=== PATIENT | female | born 1940 | race Caucasian/White ===

== ENCOUNTER 2016-06-24 15:04 | Emergency (ER) | payer MEDICARE, OTHER, BC ==
[2013-10-31 13:12] VITALS: BMI 36.6
[~2016-06-24 15:04] MED LIST: ADVAIR 250/501 DISK INH; ALTOPREV40 MG PO; CELEXA20 MG PO; COUMADIN7.5 MG PO; FLOVENT DI50 MCG/DIS INH; GLUCOPHAGE1000 MG PO; KLOR-CON M2020 MEQ PO; LASIX40 MG PO; LEVAQUIN500 MG PO; MAG-OXIDE400 MG PO; PRILOSEC20 MG PO; STERAPRED DS 1210 MG PO; SYNTHROID200 MC1 PO
[2016-06-24 16:30] LABS: BASOPHILS 0.3 % (0.0-2.0); EOSINOPHILS 0 % (0-7); HEMATOCRIT 39.7 % (36.0-48.0); IMMATURE GRANULOCYTES 0.4 % (0-5); LYMPHOCYTES 7.9 % (15-50); MCH 31.2 pg (26.0-34.0); MCHC 32.7 g/dL (31.0-37.0); MCV 95.2 fL (80.0-100.0); MEAN PLATELET VOLUME 11.4 fL (7.4-10.4); MONOCYTES 9.4 % (2-11); PLATELET COUNT 169 10x3/uL (130-400); RBC 4.17 10x6/uL (4.00-5.40); RDW 13.5 % (11.5-14.5); WBC 9.4 10x3/uL (4.8-10.8)
[2016-06-24 16:41] LABS: INR 1.83 (0.85-1.17); PROTIME 21.1 SECONDS (11.6-15.0)
[2016-06-24 17:15] LABS: ALBUMIN 3.4 g/dL (3.4-5.0); ALKALINE PHOSPHATASE 104 U/L (46-116); ALT (SGPT) 65 U/L (10-68); BILIRUBIN - TOTAL 1.15 mg/dL (0.2-1.3); CALC OSMOLALITY 285 mosm/kg (275-300); CALCIUM 9.9 mg/dL (8.5-10.1); CARBON DIOXIDE 28.2 mmol/L (21.0-32.0); CHLORIDE - SERUM 103 mmol/L (98-107); CREATININE - SERUM 0.7 mg/dL (0.6-1.3); GLUCOSE 149 mg/dL (74-106); POTASSIUM - SERUM 4.1 mmol/L (3.5-5.1); PROTEIN - SERUM 6.1 g/dL (6.4-8.2); SODIUM 141 mmol/L (136-145); UREA NITROGEN 18 mg/dL (7-18); eGFR NON AFRICAN AMERICAN 86 mL/min (90-120)
[2016-06-24 17:32] LABS: CREATINE KINASE 365 UL (21-215); MAGNESIUM - SERUM 1.7 mg/dL (1.8-2.4); PRO BNP 1792 pg/mL (0-450)
[2016-06-24 17:34] LABS: TROPONIN-I < 0.017 ng/mL (0.000-0.060)
[2016-06-24 17:57] LABS: APPEARANCE CLEAR (CLEAR); BILIRUBIN NEGATIVE (NEGATIVE); COLOR YELLOW (YELLOW); GLUCOSE NEGATIVE (NEGATIVE); KETONE SMALL mg/dL (NEGATIVE); LEUKOCYTE ESTERASE NEGATIVE (NEGATIVE); NITRITE NEGATIVE (NEGATIVE); PROTEIN TRACE mg/dL (NEGATIVE); SPECIFIC GRAVITY 1.015 (1.005-1.020); UROBILINOGEN NORMAL (NORMAL)
[2016-06-25] MEDS ORDERED: GLUCOPHAGE500 MG PO (17:38)
[2016-06-25] MEDS ORDERED: COUMADIN6 MG PO (17:46)
[2016-06-25] MEDS ORDERED: COUMADIN7.5 MG PO (17:47)
[2016-06-25] MEDS ORDERED: REQUIP0.5 MG PO (17:50)
== END 2016-06-24 20:15 | disposition home or self-care (01) ==
LOC: D.ER 15:04
PROVIDERS: Nurse Practitioner Family
DX: M25.552 Pain in left hip (principal); M25.512 Pain in left shoulder; I50.9 Heart failure, unspecified; E83.42 Hypomagnesemia; J45.909 Unspecified asthma, uncomplicated; E03.9 Hypothyroidism, unspecified; M54.12 Radiculopathy, cervical region; Z95.1 Presence of aortocoronary bypass graft; J44.9 Chronic obstructive pulmonary disease, unspecified; E11.9 Type 2 diabetes mellitus without complications

== ENCOUNTER 2016-06-25 16:20 | Inpatient (IN) | payer MEDICARE, BC, OTHER ==
[~2016-06-25] VITALS: Ht 157.5 cm; Wt 88.9 kg
[2016-06-25 16:56] VITALS: BP 122/65; BMI 35.9
--- NOTE | 2016-06-25 17:00 | NUR ---
PATIENT TO ROOM AT THIS TIME. ADMITTED AND ASSESSED. NO IV STARTED OF YET. PHYSICIAN AT BEDSIDE. CALL LIGHT WITHIN REACH.
[2016-06-25 17:25] VITALS: BP 122/65
[2016-06-25] MEDS ORDERED: GLUCOPHAGE500 MG PO (17:38)
--- NOTE | 2016-06-25 17:40 | NUR ---
IN TO START PATIENT IV. PATIENT UP IN BED EATING CLEAR LIQUID TRAY. EXPLAINED I WOULD WAIT UNTIL FINISHED EATING. VERBALIZED UNDERSTANDING. FAMILY AT BEDSIDE. CALL LIGHT WITHIN REACH.
[2016-06-25] MEDS ORDERED: COUMADIN6 MG PO (17:46)
[2016-06-25] MEDS ORDERED: COUMADIN7.5 MG PO (17:47)
[2016-06-25] MEDS ORDERED: REQUIP0.5 MG PO (17:50)
--- NOTE | 2016-06-25 18:15 | NUR ---
PATIENT DOWN TO GET CT SCAN.
--- NOTE | 2016-06-25 18:56 | NUR ---
PATIENT SITTING UP IN BED, LAB AT BEDSIDE. FAMILY AT BEDSIDE. CALL LIGHT WITHIN REACH.
[2016-06-25 19:16] LABS: INR 1.59 (0.85-1.17); PROTIME 18.9 SECONDS (11.6-15.0)
[2016-06-25 19:25] LABS: ALBUMIN 3.3 g/dL (3.4-5.0); ANION GAP 12.4 mmol/L (8-16); BILIRUBIN - TOTAL 0.98 mg/dL (0.2-1.3); CALCIUM 10.9 mg/dL (8.5-10.1); CARBON DIOXIDE 31.7 mmol/L (21.0-32.0); CREATININE - SERUM 0.9 mg/dL (0.6-1.3); POTASSIUM - SERUM 4.1 mmol/L (3.5-5.1); PROTEIN - SERUM 6.3 g/dL (6.4-8.2)
[2016-06-25 19:35] LABS: THYROID STIMULATING HORMONE 1.56 uIU/mL (0.36-3.74)
[2016-06-25 20:45] LABS: APPEARANCE CLEAR (CLEAR); BILIRUBIN NEGATIVE (NEGATIVE); COLOR YELLOW (YELLOW); GLUCOSE NEGATIVE (NEGATIVE); KETONE NEGATIVE (NEGATIVE); LEUKOCYTE ESTERASE NEGATIVE (NEGATIVE); NITRITE NEGATIVE (NEGATIVE); PROTEIN NEGATIVE (NEGATIVE); SPECIFIC GRAVITY 1.015 (1.005-1.020); UROBILINOGEN NORMAL (NORMAL)
[2016-06-25 21:25] VITALS: BP 143/76
--- NOTE | 2016-06-25 21:56 | NUR ---
AWAKE,ALERT. VISITING WITH FAMILY. NO COMPLIANTS AT PRESENT. SL TO RIGHT AC INTACT WITHOUT REDNESS OR EDEMA NOTED.CL IN REACH
[2016-06-26] VITALS (12 sets, daily range): BP systolic 108–177; BP diastolic 52–82; Ht 157.5 cm; Wt 88.9 kg
--- NOTE | 2016-06-26 02:15 | NUR ---
RESTING WITH EYES CLOSED, RESP WITH EASE, FALL PRECAUTIONS IN PLACE, CL IN REACH
[2016-06-26 05:29] LABS: BASOPHILS 0.2 % (0.0-2.0); EOSINOPHILS 0 % (0-7); HEMATOCRIT 36.9 % (36.0-48.0); HEMOGLOBIN 11.9 g/dL (12-16); IMMATURE GRANULOCYTES 0.5 % (0-5); LYMPHOCYTES 9.1 % (15-50); MCH 30.7 pg (26.0-34.0); MCHC 32.2 g/dL (31.0-37.0); MCV 95.1 fL (80.0-100.0); MEAN PLATELET VOLUME 11.4 fL (7.4-10.4); MONOCYTES 9.6 % (2-11); NEUTROPHILS 80.6 % (40-80); PLATELET COUNT 186 10x3/uL (130-400); RBC 3.88 10x6/uL (4.00-5.40); RDW 13.6 % (11.5-14.5); WBC 10.7 10x3/uL (4.8-10.8)
--- NOTE | 2016-06-26 05:39 | NUR ---
AWAKE.WITH NO COMPLAINTS. CL IN REACH. DAUGHTER REMAINS AT BEDSIDE.
[2016-06-26 05:53] LABS: APTT 46.6 SECONDS (22.8-39.4); INR 1.66 (0.85-1.17); PROTIME 19.6 SECONDS (11.6-15.0)
[2016-06-26 06:01] LABS: ALBUMIN 2.6 g/dL (3.4-5.0); ALKALINE PHOSPHATASE 117 U/L (46-116); ALT (SGPT) 49 U/L (10-68); CALCIUM 10.8 mg/dL (8.5-10.1); CARBON DIOXIDE 30.5 mmol/L (21.0-32.0); CHLORIDE - SERUM 99 mmol/L (98-107); CREATININE - SERUM 0.7 mg/dL (0.6-1.3); LDH 236 U/L (81-234); MAGNESIUM - SERUM 1.8 mg/dL (1.8-2.4); PHOSPHOROUS 3.5 mg/dL (2.5-4.9); POTASSIUM - SERUM 3.7 mmol/L (3.5-5.1); PROTEIN - SERUM 6.4 g/dL (6.4-8.2); SODIUM 136 mmol/L (136-145); UREA NITROGEN 25 mg/dL (7-18); eGFR NON AFRICAN AMERICAN 86 mL/min (90-120)
[2016-06-26 06:02] LABS: CALC OSMOLALITY 278 mosm/kg (275-300); GLUCOSE 149 mg/dL (74-106)
[2016-06-26 06:16] LABS: C-REACTIVE PROTEIN 7.7 mg/dL (0.0-0.9)
[2016-06-26 06:41] LABS: ERYTHROCYTE SEDIMENTATION RATE 68 mm/hr (0-30)
--- NOTE | 2016-06-26 07:00 | NUR ---
REPORT RECIEVED ASSUMED CARE. PATIENT IN BED WITH IV INTACT. NO COMPLAINTS OR SIGNS OF DISTRESS. PATIENT MORE AWAKE AND ALERT THIS MORNING THAN YESTERDAY EVENING. FAMILY AT BEDSIDE. WAITING TO SEE IF IR IS GOING TO CONTINUE WITH THORACENTESIS OR NOT. BSCDS ON AND WORKING. CALL LIGHT WITHIN REACH.
--- NOTE | 2016-06-26 09:15 | NUR ---
PATIENT TO ROOM WITH NO COMPLAINTS AT THIS TIME. IV INTACT. VS STABLE. FAMILY AT BEDSIDE. CALL LIGHT WITHIN REACH.
[2016-06-26 11:02] LABS: PROTEIN - BODY FLUID 3.9 G/DL
--- NOTE | 2016-06-26 11:37 | NUR ---
Patient Name: JAIME THOMAS Admission Status: Urgent Accout number: [id number] Admission Date: 06-25-2016 : 1940 Admission Diagnosis:CHRONIC OBSTRUCTIVE PULMON DISEASE W ACUTE LOWER RESP I Attending: KIERSTEN Current LOS: 1 Anticipated DC Date: 06-29-2016 Planned Disposition: Home with Home Health Primary Insurance: MEDICARE A & B Discharge Planning Comments: CM MET WITH FAMILY AND PATIENT REGARDING D/C NEEDS AND PLANS. PATIENT LIVES WITH HER SPOUSE (CHARLENE) AND HE WILL DRIVE HER HOME WHEN DISCHARGED. THERE ARE NO STEPS OR STAIRS AT THERE HOME. PATIENT HAS BECOME MORE DEPENDENT IN LAST FEW WEEKS PER DAUGHTER (DEIDRE). PATIENT NEEDS HELP BATHING, DRESSING, MEDICATION MANAGEMENT, AND TRANSFER. PATIENT HAS NOT BEEN FEEDING HERSELF LAST FEW WEEKS AND IS NEEDING HELP. PATIENTS PCP IS DR. VARGAS AND PHARMACY IS [facility]. FAMILY CHOSE [facility] AND [facility]M SIGNED. SNF WAS OUT OF THE QUESTION DAUGHTER STATED. CM WILL CONTINUE TO FOLLOW PATIENT WITH D/C NEEDS AND PLANS. PCP DR. SAM GOME[facility]- [phone] DEIDRE (DAUGHTER) [phone] CHARLENE (SPOUSE) H [phone] C [phone] Technical Support Consultant: Regina Marin How many steps to enter\exit or inside your home? 0 0 * PCP DR. VARGAS 0 * Pharmacy [facility] * Preadmission Environment Home with Family 0 * ADLs Independent 0 * Equipment Bedside Commode Glucometer Nebulizer Oxygen Shower Chair Walker 0 * Other Equipment [employer] O2 0 * List name and contact numbers for known caregivers / representatives who currently or will assist patient after discharge: DEIDRE (DAUGHTER) [phone] CHARLENE (SPOUSE) H [phone], C [phone] 0 * Community resources currently utilized None 0 * Additional services required to return to the preadmission environment? Yes 0 * Can the patient safely return to the preadmission environment? Yes 0 * Has this patient been hospitalized within the prior 30 days at any hospital? No 0 Grand Total: 0
--- NOTE | 2016-06-26 12:10 | NUR ---
PATIENT SITTING UP IN BED EATING CLEAR LIQUIDS AT THIS TIME. NO COMPLAINTS AT THIS TIME. FAMILY AT BEDSIDE. CALL LIGHT WITHIN REACH.
[2016-06-26 13:00] LABS: LYMPH - BF 8 %; MACROPHAGES BF 3 %; NEUT - BF 89 %
--- NOTE | 2016-06-26 14:48 | NUR ---
PATIENT IN BED WITH IV INTACT. NO COMPLAINTS AT THIS TIME. FAMILY AT BEDSIDE. BSCDS ON AND WORKING. CALL LIGHT WITHIN REACH.
--- NOTE | 2016-06-26 17:08 | NUR ---
DRESSING CHANGED PER ORDER AT THIS TIME. PT BED IN LOW POSITION AND CALL LIGHT WITHIN REACH. WILL CONTINUE TO MONITOR.
[2016-06-27 00:59] VITALS: BP 120/51
--- NOTE | 2016-06-27 01:00 | NUR ---
RT AC IV LEAKING. REMOVED AND RESITED 22 G TO RIGHT FOREARM BY LATOYA LIU. RESUMED IV PIGGYBACK. ASSISTED PT UP TO BATHROOM TO VOID. MERON MAT ALARM ON. WILL CONTINUE TO MONITOR.
[2016-06-27 04:00] VITALS: BP 129/62
[2016-06-27 06:12] LABS: BASOPHILS 0.2 % (0.0-2.0); EOSINOPHILS 0.4 % (0-7); HEMATOCRIT 37.5 % (36.0-48.0); HEMOGLOBIN 12.1 g/dL (12-16); IMMATURE GRANULOCYTES 0.8 % (0-5); LYMPHOCYTES 14.8 % (15-50); MCH 30.6 pg (26.0-34.0); MCHC 32.3 g/dL (31.0-37.0); MCV 94.7 fL (80.0-100.0); MEAN PLATELET VOLUME 11.4 fL (7.4-10.4); NEUTROPHILS 70.8 % (40-80); PLATELET COUNT 197 10x3/uL (130-400); RBC 3.96 10x6/uL (4.00-5.40); RDW 13.3 % (11.5-14.5)
[2016-06-27 06:16] LABS: WBC 5.2 10x3/uL (4.8-10.8)
[2016-06-27 06:31] LABS: INR 1.3 (0.85-1.17)
[2016-06-27 06:39] LABS: ALBUMIN 2.4 g/dL (3.4-5.0); ALKALINE PHOSPHATASE 110 U/L (46-116); ALT (SGPT) 37 U/L (10-68); CALC OSMOLALITY 283 mosm/kg (275-300); CALCIUM 10.3 mg/dL (8.5-10.1); CARBON DIOXIDE 31.2 mmol/L (21.0-32.0); CHLORIDE - SERUM 99 mmol/L (98-107); CREATININE - SERUM 0.7 mg/dL (0.6-1.3); GLUCOSE 187 mg/dL (74-106); POTASSIUM - SERUM 3.5 mmol/L (3.5-5.1); PROTEIN - SERUM 6.2 g/dL (6.4-8.2); SODIUM 138 mmol/L (136-145); UREA NITROGEN 20 mg/dL (7-18); eGFR NON AFRICAN AMERICAN 86 mL/min (90-120)
--- NOTE | 2016-06-27 07:30 | NUR ---
RECIEVED PT DURING WALKING ROUNDS. PT RESTING IN BED WITH COMPLAINTS OF PAIN OR A 5 ON A SCALE OF 1-10. PT DOES NOT REQUEST ANYTHING FOR PAIN AT THIS TIME. ASSESSMENT DONE PER FLOWSHEET. BED IN LOW POSITION AND CALL LIGHT WITHIN REACH. WILL CONTINUE TO MONITOR.
[2016-06-27 07:59] VITALS: BP 143/57
--- NOTE | 2016-06-27 08:00 | NUR ---
UP IN ROOM TO BATHROOM.PT WITHOUT DISTRESS.PARTS DATA WRITER AT SIDE.
--- NOTE | 2016-06-27 09:50 | NUR ---
SPOKE WITH PT AND FAMILY ABOUT ADVANCING DIET TOLERATED AND INFORMED THEM THAT WE COULD ADVANCE HER AT LUNCH AND SEE HOW IT IS TOLERATED. PT FREE OF COMPLAINTS, IN CHAIR AT THIS TIME WITH CALL LIGHT IN REACH. FAMILY AT BEDSIDE. WILL CONTINUE TO MONITOR.
--- NOTE | 2016-06-27 12:05 | NUR ---
ASSISTED PT BACK TO BED FROM CHAIR AT THIS TIME. TOLERATED WELL. BED IN LOW POSITION AND CALL LIGHT WITHIN REACH. WILL CONTINUE TO MONITOR.
[2016-06-27 12:08] VITALS: BP 145/90
--- NOTE | 2016-06-27 14:50 | NUR ---
CALLED DR. GARCIA AT THIS TIME TO DISCUSS PT MEDICATION. RECIEVED ORDERS TO GIVE LOVENOX 1MG/KG Q12HR UNTIL AN INR REACHES 2. RECIEVED AN ORDER FOR COUMADIN 10MG X2 DOSES AND THEN RESTART THE PT COUMADIN 6MG DAILY. CALL WAS THEN PLACED TO DR. MIKAELA CAMEJOING PTS UNCONTROLLED A-FIB AND RECIEVED AN ORDER FOR RYTHMOL 300MG BID, HE STATED HE WOULD SEE THE PT AGAIN TOMORROW AND ACT ACCORDINGLY. BED IN LOW POSITION AND CALL ROSIBEL HUERTA. WILL CONTINUE TO LUPE.
[2016-06-27 16:23] VITALS: BP 137/65
[2016-06-27 19:00] VITALS: BP 108/50
[2016-06-27 20:07] LABS: AFB SPECIMEN PROCESSING Concentration (())
--- NOTE | 2016-06-27 21:12 | NUR ---
PATIENT RESTINGI BED. NO SIGNS OF DISTRESS NOTED. RESPIRATIONS EVEN AND UNLABORED. VOICED PATIENT HAS BEEN HALLUCINATING. PATIENT IS CONFUSED TO PLACE AND SITUATION AT THIS TIME. ASSISTED TO BATHROOM WITHOUT DIFFICULTY. SCHEDULED MEDICATIONS GIVEN ORDERED. DENIES ANY NEEDS AT THIS TIME. BED LOW. CALL LIGHT IN REACH .
--- NOTE | 2016-06-27 22:34 | NUR ---
PT IS AWAKE AND 3 FAMILY MEMBERS AT AT THE BEDSIDE GETTING HER COMFORTABLE AND TELLING HER THAT THEY ARE GOING HOME FOR THE NIGHT. PT IS ABLE TO GO TO THE BATHROOM WITH ASSIST AND USES THE CALL LIGHT WELL. THE BED IS LOW, RAILS UP X'S 2 WITH THE CALL LIGHT AT HAND.
[2016-06-28] VITALS: BP 128/59
[2016-06-28 04:00] VITALS: BP 128/61
[2016-06-28 07:15] LABS: BASOPHILS 0.9 % (0.0-2.0); EOSINOPHILS 1.9 % (0-7); HEMATOCRIT 36.9 % (36.0-48.0); IMMATURE GRANULOCYTES 0.6 % (0-5); LYMPHOCYTES 25.3 % (15-50); MCH 30.7 pg (26.0-34.0); MCHC 32.5 g/dL (31.0-37.0); MCV 94.4 fL (80.0-100.0); NEUTROPHILS 56.3 % (40-80); PLATELET COUNT 225 10x3/uL (130-400); RBC 3.91 10x6/uL (4.00-5.40); RDW 13.3 % (11.5-14.5); WBC 4.7 10x3/uL (4.8-10.8)
[2016-06-28 07:38] LABS: INR 1.54 (0.85-1.17); PROTIME 18.5 SECONDS (11.6-15.0)
[2016-06-28 07:44] LABS: ALBUMIN 2.6 g/dL (3.4-5.0); ALKALINE PHOSPHATASE 95 U/L (46-116); ALT (SGPT) 31 U/L (10-68); BILIRUBIN - TOTAL 0.54 mg/dL (0.2-1.3); CALC OSMOLALITY 285 mosm/kg (275-300); CALCIUM 9.5 mg/dL (8.5-10.1); CARBON DIOXIDE 34.2 mmol/L (21.0-32.0); CHLORIDE - SERUM 102 mmol/L (98-107); CREATININE - SERUM 0.7 mg/dL (0.6-1.3); GLUCOSE 177 mg/dL (74-106); POTASSIUM - SERUM 3.4 mmol/L (3.5-5.1); PROTEIN - SERUM 5.9 g/dL (6.4-8.2); SODIUM 140 mmol/L (136-145); UREA NITROGEN 20 mg/dL (7-18); eGFR NON AFRICAN AMERICAN 86 mL/min (90-120)
[2016-06-28 08:04] VITALS: BP 126/68
--- NOTE | 2016-06-28 08:25 | NUR ---
IN BED AT THIS TIME. ALERT AND ORIENTED. CALL LIGHT IN REACH, WILL CONTINUE WITH PLAN OF CARE.
--- NOTE | 2016-06-28 10:50 | NUR ---
SCHEDULED MEDICATIONS ADMINISTERED AT THIS TIME. ASSESSMENT PERFORMED PER FLOWSHEET. CALL LIGHT IN REACH, FAMILY AT BEDSIDE. WILL CONTINUE WITH PLAN OF CARE.
--- NOTE | 2016-06-28 13:00 | NUR ---
UP TO BEDSIDE COMMODE AT THIS TIME AND PT HAD LARGE, SOFT PAUL COLORED STOOL. INCONTINENCE CARE PROVIDED AT THIS TIME. ASSISTED PT BACK TO BED. 20G IV SITED TO RIGHT HAND X3 ATTEMPTS. IV TO RIGHT WRIST LEAKING AROUND INSERTION SITE. D/C WITH CATH TIP INTACT. CALL LIGHT IN REACH, SRX2 WITH BED IN LOWEST POSITION AND WHEELS LOCKED. WILL CONTINUE WITH PLAN OF CARE.
[2016-06-28] MEDS ORDERED: LANTUS SOL100 UNIT/1 SC (16:00)
[2016-06-28] MEDS ORDERED: HUMALOG 30100 UNITS/ SC (16:06)
[2016-06-28 16:14] VITALS: BP 126/63
--- NOTE | 2016-06-28 17:40 | NUR ---
UP IN CHAIR AT THIS TIME. FAMILY AT BEDSIDE. NO CHANGES IN INITIAL ASSESSMENT. CALL LIGHT IN REACH, WILL CONTINUE WITH PLAN OF CARE.
--- NOTE | 2016-06-28 21:22 | NUR ---
PATIENT RESTING IN BED AT THIS TIME. NO SIGNS OF DISTRESS NOTED. RESPIRATIONS EVEN AND UNLABORED. AT BED SIDE. SCHEDULED MEDICATIONS GIVEN. DENIES ANY NEEDS AT THIS TIME. BED LOW. CALL LIGHT IN REACH.
[2016-06-28 22:00] VITALS: BP 124/60
[2016-06-29 02:00] VITALS: BP 118/59
--- NOTE | 2016-06-29 02:19 | NUR ---
EYES CLOSED RESPIRAIONS WITH EASE AND UNLABORED. SR UP X2 CALL LIGHT WITHIN REACH.
[2016-06-29 05:00] VITALS: BP 120/62
[2016-06-29 05:30] LABS: BASOPHILS 0.6 % (0.0-2.0); EOSINOPHILS 4.1 % (0-7); HEMATOCRIT 35.5 % (36.0-48.0); HEMOGLOBIN 11.4 g/dL (12-16); IMMATURE GRANULOCYTES 0.8 % (0-5); LYMPHOCYTES 28.8 % (15-50); MCH 30.4 pg (26.0-34.0); MCHC 32.1 g/dL (31.0-37.0); MCV 94.7 fL (80.0-100.0); MONOCYTES 11.9 % (2-11); NEUTROPHILS 53.8 % (40-80); PLATELET COUNT 234 10x3/uL (130-400); RBC 3.75 10x6/uL (4.00-5.40); RDW 13.2 % (11.5-14.5); WBC 4.9 10x3/uL (4.8-10.8)
[2016-06-29 05:46] LABS: INR 2.02 (0.85-1.17); PROTIME 22.9 SECONDS (11.6-15.0)
[2016-06-29 05:56] LABS: ALBUMIN 2.7 g/dL (3.4-5.0); ALKALINE PHOSPHATASE 84 U/L (46-116); ALT (SGPT) 27 U/L (10-68); CALC OSMOLALITY 283 mosm/kg (275-300); CALCIUM 9.5 mg/dL (8.5-10.1); CARBON DIOXIDE 32.2 mmol/L (21.0-32.0); CHLORIDE - SERUM 101 mmol/L (98-107); CREATININE - SERUM 0.7 mg/dL (0.6-1.3); GLUCOSE 128 mg/dL (74-106); POTASSIUM - SERUM 3.7 mmol/L (3.5-5.1); PROTEIN - SERUM 5.9 g/dL (6.4-8.2); SODIUM 140 mmol/L (136-145); UREA NITROGEN 20 mg/dL (7-18); eGFR NON AFRICAN AMERICAN 86 mL/min (90-120)
[2016-06-29 08:52] VITALS: BP 127/70
[2016-06-29 10:12] LABS: ANA REFLEX - DIRECT Negative (Negative)
[2016-06-29 12:32] VITALS: BP 113/53
--- NOTE | 2016-06-29 12:57 | NUR ---
IV access-22 gauge inserted in left wrist x 1 attempt. Coretta Baird RN
[2016-06-29 13:47] LABS: FUNGUS STAIN Final report (())
[2016-06-29 15:32] VITALS: BP 110/62
[2016-06-29 21:00] VITALS: BP 128/50
--- NOTE | 2016-06-29 21:30 | NUR ---
PATIENT SITTING UP IN CHAIR. NO SIGNS OF DISTRESS NOTED. SCHEDULED MEDS GIVEN. AT BEDSIDE. DENIES ANY NEEDS AT THIS TIME. BED LOW. CALL LIGHT IN REACH.
--- NOTE | 2016-06-30 00:12 | NUR ---
PT IN BED WITH NO DISTRESS. RESPIRATIONS EVEN AND UNLABORED. SIDE RAILS X 2. BED LOW. CALL LIGHT IN REACH.
[2016-06-30 01:00] VITALS: BP 114/48
[2016-06-30 04:54] LABS: BASOPHILS 0.2 % (0.0-2.0); EOSINOPHILS 3.2 % (0-7); HEMATOCRIT 34.9 % (36.0-48.0); HEMOGLOBIN 11.2 g/dL (12-16); IMMATURE GRANULOCYTES 0.6 % (0-5); MCH 30.5 pg (26.0-34.0); MCHC 32.1 g/dL (31.0-37.0); MCV 95.1 fL (80.0-100.0); MEAN PLATELET VOLUME 10.6 fL (7.4-10.4); MONOCYTES 10.6 % (2-11); NEUTROPHILS 63.4 % (40-80); PLATELET COUNT 248 10x3/uL (130-400); RBC 3.67 10x6/uL (4.00-5.40); RDW 13.3 % (11.5-14.5)
[2016-06-30 05:00] VITALS: BP 135/68
[2016-06-30 05:10] LABS: INR 2.56 (0.85-1.17); PROTIME 27.7 SECONDS (11.6-15.0)
[2016-06-30 05:17] LABS: ALBUMIN 2.9 g/dL (3.4-5.0); ALKALINE PHOSPHATASE 84 U/L (46-116); ALT (SGPT) 26 U/L (10-68); BILIRUBIN - TOTAL 0.36 mg/dL (0.2-1.3); CALC OSMOLALITY 280 mosm/kg (275-300); CALCIUM 8.9 mg/dL (8.5-10.1); CARBON DIOXIDE 31.6 mmol/L (21.0-32.0); CHLORIDE - SERUM 100 mmol/L (98-107); CREATININE - SERUM 0.7 mg/dL (0.6-1.3); GLUCOSE 140 mg/dL (74-106); POTASSIUM - SERUM 3.7 mmol/L (3.5-5.1); PROTEIN - SERUM 5.4 g/dL (6.4-8.2); SODIUM 139 mmol/L (136-145); UREA NITROGEN 16 mg/dL (7-18); eGFR NON AFRICAN AMERICAN 86 mL/min (90-120)
--- NOTE | 2016-06-30 07:20 | NUR ---
UP IN CHAIR AT THIS TIME. ALERT AND ORIENTED. OXYGENATION VIA ROOM AIR. ASSESSMENT PERFORMED PER FLOWSHEET. IV TO LEFT WRIST S/L PER ORDER. IV WITH NO S/S OF INFILTRATION PRESENT. CALL LIGHT IN REACH, DENIES NEEDS AT PRESENT TIME. WILL CONTINUE WITH PLAN OF CARE.
[2016-06-30 08:33] VITALS: BP 155/61
--- NOTE | 2016-06-30 09:00 | NUR ---
SCHEDULED MEDICATIONS ADMINISTERED AT THIS TIME. UP IN CHAIR AT THIS TIME. AT BEDSIDE AND CALL LIGHT IN REACH. DENIES NEEDS AT PRESENT TIME. WILL CONTINUE WITH PLAN OF CARE.
--- NOTE | 2016-06-30 12:02 | NUR ---
SCHEDULED MEDICATION ADMINISTERED AT THIS TIME. FSBS 172 AND COVERED WITH 8 UNITS OF HUMALOG VIA SLIDING SCALE.
[2016-06-30 12:08] VITALS: BP 134/62
--- NOTE | 2016-06-30 15:00 | NUR ---
NUTRITION MONITORING & EVAL CHART REVIEWED, PT WALKING WITH PT. TOLERATING ADA DIET. 75% INTAKE RECENT MEALS. WILL CONTINUE TO PROVIDE DIET, MONITOR PT PROGRESS. RD FOLLOWING
[2016-06-30 15:17] VITALS: BP 158/65
--- NOTE | 2016-06-30 16:25 | NUR ---
FSBS 132, SO NO COVERAGE NEEDED PER SLIDING SCALE. CALL LIGHT IN REACH AND AT BEDSIDE. DENIES NEEDS AT THIS TIME. WILL CONTINUE WITH PLAN OF CARE.
--- NOTE | 2016-06-30 18:38 | NUR ---
UP IN CHAIR AT THIS TIME. DENIES NEEDS. CALL LIGHT IN REACH. WILL CONTINUE WITH PLAN OF CARE.
--- NOTE | 2016-06-30 19:30 | NUR ---
ASSESSMENT COMPLETE. S1S2; CLICK. RR DIMINISHED BILATERALLY IN ALL LOBES. AAO. NO SCD IN PLACE; FREQUENT TRIPS TO RESTROOM REQUIRED. PT VERBALIZES UNDERSTANDS LASIX MEDICATION. PERRLA. ON 2L VIA NC. DYSPNEA ON EXERTION. RADIAL AND PEDAL PULSES PALPATED. BRUISING NOTED TO B/L ARMS; PT STATES FROM PIV'S. PIV TO LEFT WRIST; PATENT; SALINE LOCKED. NO NEEDS AT THIS TIME.
--- NOTE | 2016-06-30 19:55 | NUR ---
OT NOTE: PT COMPLETED BUE GROSS/FINE MOTOR SKILLS. PT EXHIBITED DECREASE AROM IN UES. PT COMPLETED DYNAMIC SITTING BALANCE WITH CGA FOR INCREASED I WITH ADLS. THANK YOU, GINO WOODWARD/Kaiden
[2016-06-30 21:00] VITALS: BP 135/60
[2016-07-01 01:00] VITALS: BP 133/52
--- NOTE | 2016-07-01 03:40 | NUR ---
ASSISTED PT TO BATHROOM. STEADY GAIT.
[2016-07-01 05:00] VITALS: BP 122/60
--- NOTE | 2016-07-01 07:15 | NUR ---
PATIENT RECEIVED ALERT IN LOW LOPEZ POSITION. RESPIRATIONS EVEN AND UNLABORED. SIDE RAILS UP X2. BED IN LOW POSITION. CALL LIGHT IN REACH.
[2016-07-01 07:26] LABS: CALC OSMOLALITY 279 mosm/kg (275-300); CALCIUM 9.2 mg/dL (8.5-10.1); CHLORIDE - SERUM 102 mmol/L (98-107); CREATININE - SERUM 0.7 mg/dL (0.6-1.3); GLUCOSE 149 mg/dL (74-106); PHOSPHOROUS 3.5 mg/dL (2.5-4.9); POTASSIUM - SERUM 3.6 mmol/L (3.5-5.1); SODIUM 138 mmol/L (136-145); UREA NITROGEN 15 mg/dL (7-18); eGFR NON AFRICAN AMERICAN 86 mL/min (90-120)
[2016-07-01 07:33] LABS: INR 2.88 (0.85-1.17); PROTIME 30.4 SECONDS (11.6-15.0)
[2016-07-01 07:43] LABS: BASOPHILS 0.6 % (0.0-2.0); EOSINOPHILS 2.9 % (0-7); HEMATOCRIT 36.1 % (36.0-48.0); HEMOGLOBIN 11.5 g/dL (12-16); IMMATURE GRANULOCYTES 0.6 % (0-5); LYMPHOCYTES 17.8 % (15-50); MCH 30.4 pg (26.0-34.0); MCHC 31.9 g/dL (31.0-37.0); MCV 95.5 fL (80.0-100.0); MONOCYTES 8.6 % (2-11); NEUTROPHILS 69.5 % (40-80); PLATELET COUNT 260 10x3/uL (130-400); RBC 3.78 10x6/uL (4.00-5.40); RDW 13.6 % (11.5-14.5); WBC 5.5 10x3/uL (4.8-10.8)
[2016-07-01 08:09] VITALS: BP 132/62
--- NOTE | 2016-07-01 09:00 | NUR ---
PATIENT ALERT IN HIGH LOPEZ POSITION. RESPIRATIONS EVEN AND UNLABORED. IV TO LEFT WRIST SALINE LOCKED. FLUSHES EASY. NO REDNESS OR INFLAMMATION NOTED TO SITE. SCHEDULED MEDICATION ADMINISTERED. DENIES NEEDS. AT BEDSIDE. SIDE RAILS UP X2. BED IN LOW POSITION. CALL LIGHT IN REACH.
--- NOTE | 2016-07-01 11:15 | NUR ---
ACCU CHECK 228. INSULIN PER SLIDING SCALE. SCHEDULED MEDICATION ADMINISTERED. AT BEDSIDE. DENIES NEEDS. SIDE RAILS UP X2. BED IN LOW POSITION. CALL LIGHT IN REACH.
[2016-07-01 11:56] VITALS: BP 97/61
--- NOTE | 2016-07-01 14:39 | NUR ---
SITTING UP IN CHAIR AT BEDSIDE. NO SIGNS OF DISTRESS NOTED. FAMILY AT BEDSIDE. CALL LIGHT IN REACH. DENIES NEEDS.
[2016-07-01 16:20] VITALS: BP 128/61
--- NOTE | 2016-07-01 16:25 | NUR ---
Rehab Prescreening Consult recieved and the chart has been reviewed. According to the PT notes she is ambulating well without device eventhough she is on 4 liters of 02. Rehab will visit with the patient in the AM to determine her functional needs. Nichole Piedra RN Clinical Liaison, Rehab
[2016-07-01 20:14] VITALS: BP 117/65
[2016-07-02 00:04] VITALS: BP 141/62
[2016-07-02 03:59] VITALS: BP 107/65
[2016-07-02 05:51] LABS: BASOPHILS 0.4 % (0.0-2.0); EOSINOPHILS 2.6 % (0-7); HEMATOCRIT 35.6 % (36.0-48.0); HEMOGLOBIN 11.4 g/dL (12-16); IMMATURE GRANULOCYTES 0.4 % (0-5); LYMPHOCYTES 20.1 % (15-50); MCH 30.8 pg (26.0-34.0); MCV 96.2 fL (80.0-100.0); MEAN PLATELET VOLUME 10.7 fL (7.4-10.4); MONOCYTES 9.2 % (2-11); NEUTROPHILS 67.3 % (40-80); PLATELET COUNT 275 10x3/uL (130-400); RDW 13.6 % (11.5-14.5); WBC 5.3 10x3/uL (4.8-10.8)
[2016-07-02 05:58] LABS: INR 3.4 (0.85-1.17); PROTIME 34.7 SECONDS (11.6-15.0)
[2016-07-02 06:14] LABS: ALBUMIN 2.9 g/dL (3.4-5.0); ALKALINE PHOSPHATASE 80 U/L (46-116); ALT (SGPT) 28 U/L (10-68); BILIRUBIN - TOTAL 0.31 mg/dL (0.2-1.3); CALC OSMOLALITY 283 mosm/kg (275-300); CALCIUM 8.7 mg/dL (8.5-10.1); CARBON DIOXIDE 32.1 mmol/L (21.0-32.0); CHLORIDE - SERUM 103 mmol/L (98-107); CREATININE - SERUM 0.6 mg/dL (0.6-1.3); GLUCOSE 127 mg/dL (74-106); POTASSIUM - SERUM 3.9 mmol/L (3.5-5.1); PROTEIN - SERUM 5.3 g/dL (6.4-8.2); SODIUM 141 mmol/L (136-145); UREA NITROGEN 14 mg/dL (7-18); eGFR NON AFRICAN AMERICAN > 90 mL/min (90-120)
--- NOTE | 2016-07-02 07:30 | NUR ---
PATIENT RECEIVED IN LOW LOPEZ POSITION RESTING WITH EYES CLOSED. RESPIRATIONS EVEN AND UNLABORED. SIDE RAILS UP X2. BED IN LOW POSITION. CALL LIGHT IN REACH.
--- NOTE | 2016-07-02 08:30 | NUR ---
PATIENT ALERT IN BED WITH PRESENT. RESPOSITIONED FOR COMFORT. SCHEDULED MEDICATION ADMINISTERED. DENIES NEEDS. SIDE RAILS UP X2. BED IN LOW POSITION. CALL LIGHT IN REACH.
[2016-07-02 08:34] VITALS: BP 140/57
--- NOTE | 2016-07-02 11:05 | NUR ---
Rehab Note- Spoke with patient, patient makes a good IRF patient. Spoke with Cat, charge nurse & CEDRIC Kirby. Thank you for this rteferral! Lennie Chambers RN Clinical Liaison, [facility]
--- NOTE | 2016-07-02 11:27 | NUR ---
PATIENT SITTING UP ON SIDE OF BED ALERT. ACCU CHECK 203. INSULIN PER SLIDING SCALE. DENIES NEEDS. CALL LIGHT IN REACH. BED IN LOW POSITION.
[2016-07-02] MEDS ORDERED: BROVANA15 MCG/2 M INH (11:31)
[2016-07-02] MEDS ORDERED: IPRAT-ALBUT 0.5-3 ML UPD (11:31)
[2016-07-02] MEDS ORDERED: ARICEPT5 MG PO (11:31)
[2016-07-02] MEDS ORDERED: LASIX INJ40 MG/4 ML IV (11:32)
[2016-07-02] MEDS ORDERED: Rythmol PO (11:32)
[2016-07-02] MEDS ORDERED: SINGULAIR10 MG PO (11:33)
[2016-07-02] MEDS ORDERED: FLUTICASONE PRO16 GM NASAL (11:33)
[2016-07-02] MEDS ORDERED: TESSALON PERLE100 MG PO (11:33)
[2016-07-02] MEDS ORDERED: PULMICORT0.5 MG/21 UPD (11:33)
[2016-07-02] MEDS ORDERED: MUCINEX DM ER1 EAC1 PO (11:33)
[2016-07-02] MEDS ORDERED: MIRALAX17 GM PO (11:34)
[2016-07-02] MEDS ORDERED: COLACE100 MG PO (11:34)
[2016-07-02] MEDS ORDERED: MILK OF MAGNESI30 ML PO (11:34)
[2016-07-02] MEDS ORDERED: PROTONIX40 MG PO (11:34)
[2016-07-02] MEDS ORDERED: FLORAJEN3 CAPS460 MG PO (11:34)
[2016-07-02] MEDS ORDERED: HUMALOG 30100 UNITS/ SC (11:35)
[2016-07-02] MEDS ORDERED: SYNTHROID150 MCG PO (11:35)
[2016-07-02] MEDS ORDERED: MAXIPIME 1 GM/D51 G1 IV (11:38)
--- NOTE | 2016-07-02 11:50 | NUR ---
07/02/2016 11:47 DCP: Discharge Planning Rehab prescreen ordered 07/01 - met with patient, she was agreeable to transfer if accepted. Screen completed this morning - patient has been accepted and will transfer later this afternoon. She wants to use [facility] when discharged from rehab. CM will follow.
[2016-07-02 12:21] VITALS: BP 132/78
--- NOTE | 2016-07-02 14:00 | NUR ---
UP AMBULATING IN HALLWAY WITH PT. NO SIGNS OF DISTRESS NOTED. WILL CONTINUE TO MONITOR.
--- NOTE | 2016-07-02 16:14 | NUR ---
ALERT IN BED VISITING WITH GUESTS. DENIES NEEDS. SIDE RAILS UP X2. BED IN LOW POSITION. CALL LIGHT IN REACH.
--- NOTE | 2016-07-02 17:38 | NUR ---
REPORT CALLED TO REHAB. LATOYA BAUER RECEIVED REPORT
--- NOTE | 2016-07-02 18:10 | NUR ---
PATIENT D/C TO [facility] REHAB ROOM [id number]. TRANSFERRED DOWNSTAIRS VIA WHEELCHAIR WITH AND STAFF
--- NOTE | 2016-07-03 08:46 | EC ---
PATIENT:JAIME THOMAS DATE OF SERVICE: 06/25/16 SEX: F MEDICAL RECORD: [id number] DATE OF : [birth year] LOCATION:[facility] AGE OF PATIENT: 76 ADMISSION DATE: 06/25/16 REFERRING PHYSICIAN: INTERPRETING PHYSICIAN: ROSA AL MD ECHOCARDIOGRAM REPORT ECHO CHARGES 4 ECHO COMPLETE CLINICAL DIAGNOSIS: CHF/AFIB/ HX OF [facility]) ECHOCARDIOGRAPHIC MEASUREMENTS (adult normal given) AC root (d.<3.7cm) 3.5 LV Septum d (<1.2 cm> 1.8 Valve Excursion 1.1 LV Septum (systole) 2.1 Left Atria (s.<4.0cm> 4.6 LVPW d(<1.2cm) 2.0 RV (d.<2.3cm) 3.6 LVPW (sytole) 2.1 LV diastole(<5.6CM) 4.4 MV E-F(>70mm/sec) LV systole 3.4 LVOT Diameter 1.0 MV exc.(>10mm) Est.ejection fraction (50-75%) Pericardial Effusion N DOPPLER: LVIT A 52.0 E 138 LA RVSP 36 LVOT 137 AOP1/2T Asc. Ao 166 RVOT 145 RA PA 160 AV Gradient Peak 11.07 AV Mean 5.07 AV Area 0.7 MV Gradient Peak 9.67 MV Mean 4.0 MV Area COMMENTS: Wood Treating Inspector: Génesis JUARES Survey Research Manager:2 Dr. De Anda TAPE# PACS DATE OF SERVICE: 06/26/2016 Echocardiogram FINDINGS: 1. Left ventricle chamber size is within normal limits. Left ventricular systolic function is normal. Overall ejection fraction estimated at 55%. 2. Left atrium is mildly dilated at 4.6 cm. Right atrium and right ventricle chamber sizes are within normal limits. 3. Valvular structures: Mitral valve was placed with a mechanical prosthesis ECHOCARDIOGRAM REPORT [id number] JAIME THOMAS with normal structure and function in this position. The remaining valvular structures have normal structure and motion. 4. Doppler interrogation only reveals mild tricuspid regurgitation. No other valvular insufficiency or stenosis. 5. No evidence of pericardial effusion or left ventricular thrombus. TRANSINT:[id number] Voice Confirmation ID: [id number] DOCUMENT ID: [id number] ROSA AL MD at 0846 CC: [id number] DICTATION DATE: 06/26/16 1240 STAINING MACHINE OPERATOR: 06/26/16 1338 DIS IN 07/02/16 [address] [place] [address]
--- NOTE | 2016-07-03 08:46 | CN ---
PATIENT NAME:JAIME CORTEZ MEDICAL RECORD: [id number] : 38 LOCATION:[facility] ADMIT DATE: 06/25/16 ACCOUNT: [id number] CONSULTING PHYSICIAN: ROSA AL MD REFERRING PHYSICIAN: CRISELDA VARGAS MD DATE OF CONSULTATION: 06/26/2016 Cardiology Consultation ADMITTING DIAGNOSES: 1. Pleural effusion, status post thoracentesis. 2. Possible pneumonia. 3. Status post mitral valve replacement. 4. Coumadin anticoagulation for prosthetic mitral valve. 5. History of atrial fibrillation. 6. Hyperlipidemia. HISTORY OF PRESENT ILLNESS: Mrs. Cortez is well known to us, status post mitral valve replacement. She has a past history of atrial fibrillation; however, no recent atrial fibrillation. She is admitted for thoracentesis and antibiotic therapy. The EKGs are copies in the chart, but they appear to be sinus rhythm with PACs. She has not complained of any palpitations. Her heart rate is largely been in the 60-70 range. She is on no antiarrhythmic medications at this time. She was on Coumadin for her heart valve. Her last INR was 1.59. PHYSICAL EXAMINATION: GENERAL APPEARANCE: Well-nourished, well-developed, appears stated age. Level of distress, comfortable. PSYCHIATRIC: Mental status, alert, normal affect. Orientation, oriented to time, place and person. EYES: Lids and conjunctiva, noninjected. No discharge, no pallor. ENT: Lips, teeth, gums, normal dentition. Oropharynx, no cyanosis, no pallor. NECK: Carotid arteries, bilateral normal upstroke, no bruits, no thrills. JUGULAR VEINS: No jugular venous pressure or distention. CERVICAL LYMPH NODES: Nontender, nonenlarged. THYROID: Not enlarged. Nontender. No nodules. LUNGS: Respiratory effort, unlabored. CHEST: Normal curvature. No thoracic deformity. No chest wall tenderness. Percussion, resonant. Auscultation, clear. No wheezes, no rales, no rhonchi. CARDIOVASCULAR: Heart is regular. Good valve sounds, compatible with prosthetic aortic valve. EXTREMITIES: No cyanosis, no edema. Peripheral pulses, full and equal in all extremities, except as noted. No bruits appreciated. ABDOMEN: Soft, nondistended. Normal aorta. No bruit. Nontender. No masses. Liver, nontender, no hepatomegaly. Spleen, nontender, no splenomegaly. MUSCULOSKELETAL: No joint tenderness. No joint swelling. No erythema. NEUROLOGICAL: Normal gait, normal strength, normal tone. SKIN: Warm and dry. OVERALL IMPRESSION: 1. Status post mitral valve replacement, on Coumadin therapy. She remains on her 6 mg a day. This is stable. 2. Atrial fibrillation. At this time, she appears to be in sinus rhythm. EKG is compatible sinus rhythm. She has not had any atrial fibrillation for quite CONSULT REPORT [id number] JAIME CORTEZ some time. At this time, she does not need an antiarrhythmic. If she does go into atrial fibrillation, would place her on Rythmol. TRANSINT:[id number] Voice Confirmation ID: [id number] DOCUMENT ID: [id number] ROSA AL MD at 0846 CC: [id number] DICTATION DATE: 06/26/16 1614 RESTAURANT SERVICE MANAGER: 06/26/16 2217 DIS IN 07/02/16 [address] [place] [address]
[2016-07-29 11:19] LABS: FUNGUS MYCOLOGY CULTURE Final report (())
[2016-08-14 11:18] LABS: ACID FAST CULTURE Negative (()); ACID FAST SMEAR Negative (())
== END 2016-07-02 18:28 | DRG 190 ==
LOC: D.MS 16:20
PROVIDERS: Family Medicine; Internal Medicine Pulmonary Disease; Radiology Diagnostic Radiology; ADMIT Family Medicine
PROC: 0W993ZZ Drainage of Right Pleural Cavity, Percutaneous Approach (ICD-10-PCS; principal; 2016-06-26 08:11)
DX: J44.0 Chronic obstructive pulmonary disease with (acute) lower respiratory infection (principal); J15.6 Pneumonia due to other Gram-negative bacteria; J15.4 Pneumonia due to other streptococci; I13.0 Hypertensive heart and chronic kidney disease with heart failure and stage 1 through stage 4 chronic kidney disease, or unspecified chronic kidney disease; J90 Pleural effusion, not elsewhere classified; F05 Delirium due to known physiological condition; J45.909 Unspecified asthma, uncomplicated; E11.22 Type 2 diabetes mellitus with diabetic chronic kidney disease; N18.9 Chronic kidney disease, unspecified; E03.9 Hypothyroidism, unspecified; I05.9 Rheumatic mitral valve disease, unspecified; G25.81 Restless legs syndrome; M47.816 Spondylosis without myelopathy or radiculopathy, lumbar region; M48.06 Spinal stenosis, lumbar region

== ENCOUNTER 2016-07-02 18:19 | Inpatient (IN) | payer MEDICARE, BC, OTHER ==
[~2016-07-02] VITALS: Ht 157.5 cm; Wt 89.1 kg
[~2016-07-02 18:19] MED LIST changes: +ARICEPT5 MG PO; +BROVANA15 MCG/2 M INH; +COLACE100 MG PO; +COUMADIN6 MG PO; +FLORAJEN3 CAPS460 MG PO; +FLUTICASONE PRO16 GM NASAL; +GLUCOPHAGE500 MG PO; +HUMALOG 30100 UNITS/ SC; +IPRAT-ALBUT 0.5-3 ML UPD; +LANTUS SOL100 UNIT/1 SC; +LASIX INJ40 MG/4 ML IV; +MAXIPIME 1 GM/D51 G1 IV; +MILK OF MAGNESI30 ML PO; +MIRALAX17 GM PO; +MUCINEX DM ER1 EAC1 PO; +PROTONIX40 MG PO; +PULMICORT0.5 MG/21 UPD; +REQUIP0.5 MG PO; +Rythmol PO; +SINGULAIR10 MG PO; +SYNTHROID150 MCG PO; +TESSALON PERLE100 MG PO
--- NOTE | 2016-07-02 19:15 | NUR ---
REC'D PT FROM DAYSHIFT. PT IS A&OX3. PT HAS FAMILY AT BEDSIDE AND DENIES NEEDS AT THIS TIME. BED LOW. CL IN REACH.
[2016-07-02 19:27] VITALS: BP 118/54; Ht 157.5 cm; Wt 89.1 kg
--- NOTE | 2016-07-03 01:15 | NUR ---
PT RESTING, EYES CLOSED. BED LOW. CL IN [facility].
[2016-07-03 07:25] LABS: BASOPHILS 0.5 % (0.0-2.0); EOSINOPHILS 2.3 % (0-7); HEMATOCRIT 34.9 % (36.0-48.0); HEMOGLOBIN 11.1 g/dL (12-16); IMMATURE GRANULOCYTES 0.5 % (0-5); MCH 30.6 pg (26.0-34.0); MCHC 31.8 g/dL (31.0-37.0); MCV 96.1 fL (80.0-100.0); MEAN PLATELET VOLUME 10.7 fL (7.4-10.4); MONOCYTES 9.6 % (2-11); NEUTROPHILS 66.1 % (40-80); PLATELET COUNT 274 10x3/uL (130-400); RBC 3.63 10x6/uL (4.00-5.40); RDW 13.6 % (11.5-14.5); WBC 4.4 10x3/uL (4.8-10.8)
[2016-07-03 07:43] LABS: INR 3.57 (0.85-1.17); PROTIME 36.1 SECONDS (11.6-15.0)
[2016-07-03 07:45] LABS: CALC OSMOLALITY 281 mosm/kg (275-300); CALCIUM 8.9 mg/dL (8.5-10.1); CARBON DIOXIDE 32.1 mmol/L (21.0-32.0); CHLORIDE - SERUM 104 mmol/L (98-107); CREATININE - SERUM 0.6 mg/dL (0.6-1.3); GLUCOSE 139 mg/dL (74-106); POTASSIUM - SERUM 4.1 mmol/L (3.5-5.1); SODIUM 140 mmol/L (136-145); UREA NITROGEN 16 mg/dL (7-18); eGFR NON AFRICAN AMERICAN > 90 mL/min (90-120)
[2016-07-03 08:23] VITALS: BP 137/59
--- NOTE | 2016-07-03 09:31 | NUR ---
SITTING ON SIDE OF THE BED EATING BREAKFAST. CALLIGHT IN REACH.
--- NOTE | 2016-07-03 11:25 | NUR ---
BS 121, NO INSULIN NEEDED. NO NEEDS VOICED.
--- NOTE | 2016-07-03 13:36 | NUR ---
SITTING IN WHEELCHAIR IN THE ROOM WITH AT THE BEDSIDE.
--- NOTE | 2016-07-03 15:24 | NUR ---
SITTING IN WHEELCHAIR IN ROOM TALKING TO ROOMATE.
--- NOTE | 2016-07-03 17:03 | NUR ---
ASSISTED TO BR, NO FALLS NOTED.
--- NOTE | 2016-07-03 19:20 | NUR ---
PT IN BED VISITING WITH . NO COMPLAINTS NOTED AT THIS TIME. CALL LIGHT IN REACH
[2016-07-03 20:46] VITALS: BP 127/68
--- NOTE | 2016-07-04 00:37 | NUR ---
PT IN BED WITH EYES CLOSED AND CHEST RISING. RESPIRATIONS EVEN AND UNLABORED. NO SIGN/SYMPTOM OF DISTRESS NOTED AT THIS TIME. CALL LIGHT IN REACH.
[2016-07-04 07:00] VITALS: BP 132/55
--- NOTE | 2016-07-04 07:21 | NUR ---
PT IN BED WITH EYES CLOSED AND CHEST RISING. RESPIRATIONS EVEN AND UNLABORED. NO CONCERN NOTED AT THIS TIME. CALL LIGHT IN REACH.
[2016-07-04 07:34] LABS: INR 3.02 (0.85-1.17); PROTIME 31.5 SECONDS (11.6-15.0)
--- NOTE | 2016-07-04 08:00 | NUR ---
PT OBSERVED LYING IN BED WATCHING TV. RESPIRATIONS EVEN AND UNLABORED. PT. DENIES ANY CONCERNS AT THIS TIME. CALL LIGHT AND PERSONAL ITMENS WITHIN REACH. BED IN LOWEST POSITION.
--- NOTE | 2016-07-04 12:00 | NUR ---
PT OBSERVED SITTING IN WHEELCHAIR EAT LUNCH WITH . CALL LIGHT AND PERSONAL ITEMS WITHIN REACH.
[2016-07-04 19:19] VITALS: BP 128/54
[2016-07-04 19:22] VITALS: BP 107/79
--- NOTE | 2016-07-04 19:50 | NUR ---
assisted patient to bathroom, tolerated ambulation without oxygen, pt incontinent of min amount of urine, brief changed, pt states she has urgency. pt walks with min sba, pt has wide slow gait. pt has difficulty with bed mobility.
--- NOTE | 2016-07-05 00:44 | NUR ---
pt resting quietly, eyes closed, respirations regular with occasional snoring sound. no ss/ of acute distress.
--- NOTE | 2016-07-05 02:42 | NUR ---
pt resting quietly, no s/s of acute distress, respirations regular and unlabored.
--- NOTE | 2016-07-05 06:52 | NUR ---
pt resting quietly, denies needs.
[2016-07-05 06:58] LABS: INR 2.22 (0.85-1.17); PROTIME 24.7 SECONDS (11.6-15.0)
[2016-07-05 08:00] VITALS: BP 137/60
--- NOTE | 2016-07-05 08:00 | NUR ---
ASSISTED PT TO WHEELCHAIR TO EAT BREAKFAST. PT DENIES ANY COMPLAINTS AT THIS TIME. CALL LIGHT WITHIN REACH.
--- NOTE | 2016-07-05 12:00 | NUR ---
PT OBSERVED SITTING IN HER WHEELCHAIR EATING LUNCH WITH HER AND DAUGHTER. PT DENIES COMPLAINTS AT THIS TIME. CALL LIGHT WITHIN REACH.
--- NOTE | 2016-07-05 15:44 | NUR ---
PT RESTING QUIETLY IN BED WITH EYES CLOSE. CALL LIGHT AND PERSONAL ITEMS WITHIN REACH. BED IN LOWEST POSITION WITH SIDE RAILS UP TIMES TWO.
--- NOTE | 2016-07-05 17:45 | NUR ---
PATIENT IN BED EATING DINNER. HOB 30 DEGREES. BED IN LOWEST POSITION, CALL LIGHT IN REACH. BED RAILS UP X'S 2. NO SIGNS OF DISTRESS NOTED. PATIENT DENIES NEEDS.
[2016-07-05 19:40] VITALS: BP 125/68
--- NOTE | 2016-07-05 20:00 | NUR ---
PT IS RESTING IN BED WITH EYES OPEN. ALERT AND ORIENTED X 3. DENIES PAIN OR DISCOMFORT AT THIS TIME. VSS. O2 IS ON @ 2LPM PER NC. SPOUSE IS AT BEDSIDE. SR'S ARE UP X 2 IN BED. CALL LIGHT AND BEDSIDE TABLE ARE WITHIN EASY REACH.
--- NOTE | 2016-07-05 22:22 | NUR ---
PT IS RESTING QUIETLY IN BED WITH EYES CLOSED. RESPS ARE EVEN AND UNLABORED. NO ACUTE DISTRESS NOTED.
--- NOTE | 2016-07-05 23:40 | NUR ---
RESTING QUIETLY IN BED, HOB UP 20 DEGREES. APPEARS COMFORTABLE.
--- NOTE | 2016-07-06 02:03 | NUR ---
PT IS RESTING QUIETLY IN BED WITH EYES CLOSED. RESPS ARE EVEN AND UNLABORED. NO ACUTE DISTRESS NOTED.
--- NOTE | 2016-07-06 04:56 | NUR ---
PT RESTING IN BED WITH EYES CLOSED.
[2016-07-06 06:18] LABS: BASOPHILS 0.4 % (0.0-2.0); EOSINOPHILS 1.6 % (0-7); HEMATOCRIT 38.6 % (36.0-48.0); HEMOGLOBIN 12.3 g/dL (12-16); IMMATURE GRANULOCYTES 0.2 % (0-5); LYMPHOCYTES 20.4 % (15-50); MCHC 31.9 g/dL (31.0-37.0); MCV 97.2 fL (80.0-100.0); MEAN PLATELET VOLUME 10.9 fL (7.4-10.4); MONOCYTES 6.7 % (2-11); NEUTROPHILS 70.7 % (40-80); PLATELET COUNT 307 10x3/uL (130-400); RBC 3.97 10x6/uL (4.00-5.40); RDW 14.2 % (11.5-14.5); WBC 5.6 10x3/uL (4.8-10.8)
[2016-07-06 06:49] LABS: CALC OSMOLALITY 285 mosm/kg (275-300); CALCIUM 9.3 mg/dL (8.5-10.1); CARBON DIOXIDE 28.7 mmol/L (21.0-32.0); CHLORIDE - SERUM 104 mmol/L (98-107); CREATININE - SERUM 0.6 mg/dL (0.6-1.3); GLUCOSE 136 mg/dL (74-106); POTASSIUM - SERUM 4.5 mmol/L (3.5-5.1); SODIUM 142 mmol/L (136-145); UREA NITROGEN 15 mg/dL (7-18); eGFR NON AFRICAN AMERICAN > 90 mL/min (90-120)
[2016-07-06 07:14] LABS: INR 2.26 (0.85-1.17); PROTIME 25.1 SECONDS (11.6-15.0)
--- NOTE | 2016-07-06 07:22 | NUR ---
RESTING QUIETLY IN BED CALL LIGHT IN REACH
--- NOTE | 2016-07-06 07:26 | RHP ---
PATIENT: JAIME THOMAS MEDICAL RECORD: [id number] ACCOUNT: [id number] LOCATION:[facility] : 39 ADMISSION DATE: 07/02/16 REHABILITATION HISTORY AND PHYSICAL EXAMINATION POST ADMISSION PHYSICIAN EXAMINATION Post-Admission Physical Examination and History and Physical DATE OF ADMISSION: 07/02/2016 ADMITTING DIAGNOSES: Right lower lobe community-acquired pneumonia, probably related to Gram-negative rods and also Streptococcus pneumoniae and also right moderate pleural effusion, peripneumonic effusion suspected and chronic obstructive pulmonary disease/asthma overlap syndrome. HISTORY OF PRESENT ILLNESS: The patient admitted to the inpatient rehab with a right lower lobe community-acquired pneumonia, probably Gram-negative rods and strep pneumoniae. She also has a moderate pleural effusion on peripneumonic effusion suspected, COPD, asthma overlap syndrome. She is 76 years old. She got moderate COPD and she is on O2 at bedtime. She has also got a mitral valve replacement. She is on Coumadin. She got chronic kidney disease, CHF. She was admitted to [facility] for shortness of breath, pneumonia, pleural effusion on June 25. She has chronic back pain. MRI shows degenerative joint disease and spinal stenosis. She came in to the hospital with complaints of increasing shortness of breath over the last couple of months particularly with a few days prior to admission with occasional wheezing. She had been taking her nebulizer, which helped, but did not resolve her symptoms. She has chronic leg edema. She has dyspnea with activity, increase nocturnal symptoms. She uses oxygen daily at bedtime, but was having to use it some during the daytime. She has also had a mild cough productive of yellow sputum, but no hemoptysis. She also has chronic pain in her shoulders. She was in the ED and discharged home, came back with increasing symptoms after being seen at a walk-in clinic, chest x-ray showed a pleural effusion on admit to the [facility]. She had a CT-guided thoracentesis with 350 cc removed at that time. She is definitely in need inpatient rehab to get back to her prior level of functioning and return home. COMORBIDITIES: Include a moderate pleural effusion, right lower lobe pneumonia, chronic obstructive pulmonary disease, emphysema, asthma, status post mitral valve replacement, history of atrial fibrillation, hypothyroidism, hypertension, spinal stenosis, and restless leg syndrome. PAST MEDICAL HISTORY: Significant for COPD, asthma, chronic kidney disease, CHF, got a history of mitral valve replacement, hypertension and hypothyroidism. PAST SURGICAL HISTORY: Includes gallbladder surgery, cataract surgery, appendectomy and hysterectomy. ALLERGIES: ANY TYPE OF BENADRYL OR DIPHENHYDRAMINE, CODEINE, PENICILLIN, RAMIPRIL AND ZITHROMAX. CURRENT MEDICATIONS: She is on Coumadin, she takes 7.5 mg and alternates this with 6 on Wednesday, she is on potassium liquid 20 mEq daily, Protonix 40 mg daily. She is on Synthroid 150 mcg daily. She is on furosemide 40 mg IV daily. She is on Flonase nasal spray, Brovana 15 mcg b.i.d., Tylenol p.r.n. pain, Maxipime HISTORY AND PHYSICAL [id number] ALLSHOUSE,JAIME B 1 gram q.8 hours IV. She is on Rythmol 300 mg b.i.d., Requip 0.5 mg q.h.s., polyethylene glycol 17 grams in 8 ounces of water b.i.d. as needed for constipation, Singulair 10 mg q.h.s., Milk of Magnesia p.r.n., DuoNeb as needed, Mucinex DM b.i.d. She is on a low resistant Humalog sliding scale, Aricept 5 mg q.h.s., Colace 100 mg b.i.d. and Tessalon Perles as needed for cough. HABITS: No alcohol or tobacco use. FAMILY HISTORY: Noncontributory. SOCIAL HISTORY: The patient wants to return home with her spouse. REVIEW OF SYSTEMS: GENERAL: She only does complain of weakness. HEENT: Does complain of cold, cough, or congestion. CARDIOVASCULAR: Denies any chest pain. LUNGS: Does complain of shortness of breath. PHYSICAL EXAMINATION: VITAL SIGNS: Stable, afebrile. GENERAL: Somewhat obese female, in no acute distress, alert upon exam. HEENT: Normocephalic, atraumatic. Mucosa moist. NECK: Supple. No lymphadenopathy. LUNGS: Coarse breath sounds bilaterally. CARDIOVASCULAR: ____ rate and rhythm. ABDOMEN: Benign. EXTREMITIES: Does have peripheral edema. NEUROLOGIC: Intact. LABORATORY DATA: White count is 4.4, H&H of 11 and 35, and platelet count was 274. Her INR is 3.57. Sodium 140, potassium 4.1, BUN and creatinine of 16 and 0.6 and blood sugar is noted to be 139. ASSESSMENT: This is a 76-year-old female patient admitted to rehab with a working diagnosis of right lower lobe community-acquired pneumonia, with peripneumonic effusion status post thoracentesis. The patient has potential to make improvement. We instituted the following multidisciplinary therapies including to, but not limited to physical, occupational, respiratory, speech, nutritional services, prosthetics and orthotics. Given her complex condition and risk for more complications, rehabilitation services cannot be provided at a lower level of care such as a custodial facility. PLAN: 1. Admit to [facility] rehab for intensive inpatient therapy to include the following disciplines: A. Physical therapy to improve gait, all transfer skills and bed mobility to a modified independent level. B. Occupational therapy to improve activities of daily living to a modified independent level. C. Case management to assist with discharge planning and placement options. D. Nutrition to assist with nutritional needs. E. Rehabilitation nursing to assist in monitoring the patient's underlying medical conditions and to assist with any type of bowel or bladder management. 2. The patient's current medication and medical care will be continued. 3. The patient will be placed on standard fall precautions. HISTORY AND PHYSICAL [id number] JAIME THOMAS 4. We will monitor her INR closely. She is a little bit ____ at this time. We will go ahead and hold it until Wednesday night and restart it. 5. We will go ahead and discuss this patient during care team staff meeting this week. 6. We will go ahead and continue on IV antibiotics and treatment if necessary. TRANSINT:[id number] Voice Confirmation ID: [id number] DOCUMENT ID: [id number] CATHY BOWSER MD at 0726 CC: [id number] DICTATION DATE: 07/03/16 0838 RESTAURANT ATTENDANT: 07/03/16 1103 ADM IN [place] [id number] [place] [address]
[2016-07-06 08:00] VITALS: BP 144/61
--- NOTE | 2016-07-06 08:00 | NUR ---
PATIENT DRESSED AND SITTING UP IN WHEELCHAIR BY BED FOR BREAKFAST. IN ROOM VISITING BEFORE THERAPY
--- NOTE | 2016-07-06 10:00 | NUR ---
PATIENT HAS URGENANCY TO URINATE DUE TO LASIX 40MG. INCONT. OF URINE. WEARING BRIEF.
--- NOTE | 2016-07-06 11:30 | NUR ---
GLUCOSE LEVEL 140. NO SLIDING SCALE INSULIN GIVEN
--- NOTE | 2016-07-06 13:55 | NUR ---
PATIENT IN REHAB ROOM. WORKING WITH PHYSICAL THERAPIST. DENIES ANY PAIN/DISC AT THIS TIME
--- NOTE | 2016-07-06 17:30 | NUR ---
GLUCOSE LEVEL 164. EIGHT UNITS OF SLIDING SCALE INSULIN GIVEN
[2016-07-06 19:00] VITALS: BP 126/67
--- NOTE | 2016-07-06 20:00 | NUR ---
PT IS RESTING IN BED WITH EYES OPEN. ALERT AND ORIENTED X 4. PT DENIES PAIN OR DISCOMFORT AT THIS TIME. LEFT WRIST SALINE LOCK NOTED. NO REDNESS OR EDEMA NOTED AT THE INSERTION SITE. O2 IS ON @ 2LPM PER NC. SR'S ARE UP X 2 IN BED. CALL LIGHT AND BEDSIDE TABLE ARE WITHIN EASY REACH.
--- NOTE | 2016-07-06 22:45 | NUR ---
PT IS RESTING QUIETLY IN BED WITH EYES CLOSED. RESPS ARE EVEN AND UNLABORED. NO ACUTE DISTRESS NOTED.
--- NOTE | 2016-07-07 01:29 | NUR ---
PT IS RESTING IN BED WITH EYES OPEN. STATES SHE WAS AWOKE BY HER ROOMMATE IN PAIN. NO NEEDS VOICED.
--- NOTE | 2016-07-07 03:10 | NUR ---
RESTING IN BED, EYES CLOSED.
--- NOTE | 2016-07-07 05:49 | NUR ---
PT RESTING IN BED WITH EYES OPEN. NO NEEDS VOICED.
[2016-07-07 07:16] LABS: INR 2.43 (0.85-1.17); PROTIME 26.5 SECONDS (11.6-15.0)
--- NOTE | 2016-07-07 08:06 | NUR ---
SITTING ON THE SIDE OF THE BED FOR BREAKFAST. ALERT/ORIENT X4. CALL LIGHT WITHIN REACH
[2016-07-07 08:17] VITALS: BP 154/73
--- NOTE | 2016-07-07 08:50 | NUR ---
PATIENT REFUSED MIRALAX. STATES IT GIVES HER RUNNING STOOLS. PRN PAIN MEDICATION FOR BACK PAIN
--- NOTE | 2016-07-07 10:39 | NUR ---
PATIENT DOWN IN REHAB ROOM. WORKING WITH PHYSICAL THERAPIST. VOICES NO C/O PAIN/DISC.
--- NOTE | 2016-07-07 11:53 | NUR ---
GLUCOSE LEVEL 164. EIGHT UNITS OF SLIDING SCALE INSULIN GIVEN
--- NOTE | 2016-07-07 13:54 | NUR ---
PRN PAIN MEDICATION GIVEN FOR BACK PAIN PER PATIENTS REQUEST
--- NOTE | 2016-07-07 18:00 | NUR ---
GLUCOSE LEVEL 111. NO SLIDING SCALE INSULIN GIVEN
--- NOTE | 2016-07-07 18:23 | NUR ---
RESTING QUIETLY IN BED
--- NOTE | 2016-07-07 19:21 | NUR ---
SPOUSE VISITING WITH PATIENT WATCHING TV. NO S/S OF ACUTE DISTRESS. RESPIRATIONS REGULAR AND UNLABORED. OXYGEN 2L NC, PT COMPLAINS OF BACK PAIN AND FEELING CONGESTED.
[2016-07-07 19:35] VITALS: BP 152/69
--- NOTE | 2016-07-07 21:20 | NUR ---
PT. IN BED WITH HOB UP FOR COMFORT AND SPOUSE HAS LEFT FOR THE NIGHT. PT. DENIES ANY NEEDS AT THIS TIME AND HAS BEEN DOING MORE DEEP BREATHING AND COUGHING SINCE TEACHING WAS DONE EARLIER. IV INFUSING VIA LEFT WRIST PERIPHERAL IV VIA PUMP WITHOUT ANY ALARMS. CALL LIGHT WITHIN REACH.
--- NOTE | 2016-07-08 00:01 | NUR ---
PT. IN BED WITH HOB UP FOR COMFORT WITH EYES CLOSED AND RESP. EVEN. CALL LIGHT WITHIN REACH.
--- NOTE | 2016-07-08 04:12 | NUR ---
PT. C/O OF BEING WET DUE TO BLADDER INCONTINENCE. ASSISTED PT. TO BATHROOM AND HELPED PT. CLEAN HERSELF, NEW DRY BRIEF PLACED AND CLEAN, DRY GOWN PUT ON. CHANGED WET BED LINENS AND PT. ASSISTED BACK TO BED AND HER O2 PLACED AND HER CALL LIGHT IS WITHIN REACH.
[2016-07-08 06:23] LABS: BASOPHILS 0.5 % (0.0-2.0); HEMOGLOBIN 11.9 g/dL (12-16); LYMPHOCYTES 20.5 % (15-50); MCH 30.5 pg (26.0-34.0); MCHC 31.3 g/dL (31.0-37.0); MCV 97.4 fL (80.0-100.0); MEAN PLATELET VOLUME 10.7 fL (7.4-10.4); MONOCYTES 8.3 % (2-11); NEUTROPHILS 68.7 % (40-80); PLATELET COUNT 268 10x3/uL (130-400); RDW 14.1 % (11.5-14.5); WBC 4.4 10x3/uL (4.8-10.8)
[2016-07-08 06:36] LABS: CALC OSMOLALITY 283 mosm/kg (275-300); CALCIUM 9.3 mg/dL (8.5-10.1); CARBON DIOXIDE 32.8 mmol/L (21.0-32.0); CHLORIDE - SERUM 104 mmol/L (98-107); CREATININE - SERUM 0.6 mg/dL (0.6-1.3); GLUCOSE 138 mg/dL (74-106); POTASSIUM - SERUM 4.5 mmol/L (3.5-5.1); SODIUM 141 mmol/L (136-145); UREA NITROGEN 15 mg/dL (7-18); eGFR NON AFRICAN AMERICAN > 90 mL/min (90-120)
[2016-07-08 06:55] LABS: INR 2.95 (0.85-1.17)
--- NOTE | 2016-07-08 08:00 | NUR ---
PATIENT AWAKE. ALERT/OREINT X4. CALL LIGHT WITHIN REACH. USING CALL LIGHT FOR NEEDS. DOES NOT TRY TO GET OUT OF BED BY SELF
[2016-07-08 08:17] VITALS: BP 155/76
--- NOTE | 2016-07-08 09:05 | NUR ---
PRN TYLENOL GIVEN BEFORE THERAPY PER PATIENT REQUEST FOR BACK PAIN.
--- NOTE | 2016-07-08 11:30 | NUR ---
GLUCOSE LEVEL 159. EIGHT UNITS OF SLIDING SCALE INSULIN GIVEN
--- NOTE | 2016-07-08 15:08 | NUR ---
PATIENT IN REHAB ROOM. OFF OF OXYGEN. RUNNING AT 89% TO 94% PO.
--- NOTE | 2016-07-08 15:26 | NUR ---
CARE TEAM MEETING: PATIENT TENATIVE DISCHARGE DATE IS 07/10/16 HOME WITH SPOUSE. PCP IS DR. VARGAS. HAS USED [facility] IN THE PAST. WILL CONTINUE TO FOLLOW WITH PATIENT UNTIL DISCHARGED
--- NOTE | 2016-07-08 17:03 | NUR ---
GLUCOSE LEVEL 120. NO SLILDING SCALE INSULIN GIVEN
--- NOTE | 2016-07-08 18:57 | NUR ---
PT HAS HAD AN UNEVENTFUL DAY. NO CHANGES TO REPORT. STABLE CONDITION OBSERVED. SHE PARTICIPATED WELL IN THERAPY TODAY.
[2016-07-08 19:00] VITALS: BP 114/52; BP 136/75
--- NOTE | 2016-07-08 19:15 | NUR ---
PT. IN BED WITH HOB UP FOR COMFORT AND VISITING WITH HER . ASSESSMENT COMPLETED. PERIPHERAL S.L. IV SITE TO LEFT WRIST PATENT AND FREE S/S INFILTRATION/INFECTION. PT. AGAIN REPORTS SHE DOESN'T WANT ANY MIRALAX WITH NIGHT TIME MEDS. PT. HAS NO VOICED COMPLAINTS AND HAS HER CALL LIGHT WITHIN REACH.
--- NOTE | 2016-07-08 23:01 | NUR ---
PT. IN BED WITH HOB UP FOR COMFORT. EYES CLOSED AND RESP. EVEN. O2 AT 2L/MIN VIA N/C ORDERED FOR HS ONLY. CALL LIGHT WITHIN REACH.
--- NOTE | 2016-07-09 03:00 | NUR ---
PT. IN BED WITH HOB UP FOR COMFORT WITH EYES CLOSED AND RESP. EVEN. CALL LIGHT WITHIN REACH.
[2016-07-09 05:35] LABS: INR 3.47 (0.85-1.17); PROTIME 35.3 SECONDS (11.6-15.0)
--- NOTE | 2016-07-09 07:58 | NUR ---
RESTING IN BED WITH BREATHIANG TX IN PROGRESS.
[2016-07-09 10:17] VITALS: BP 174/69
--- NOTE | 2016-07-09 11:30 | NUR ---
BS 173, 8UNITS OF HUMALOG GIVEN. SITTING UP IN WHEELCHAIR.
--- NOTE | 2016-07-09 13:40 | NUR ---
SITTING IN WHEELCHAIR IN THE GYM.
--- NOTE | 2016-07-09 15:36 | NUR ---
SITTING IN WHEELCHAIR WATCHING TV.
--- NOTE | 2016-07-09 17:00 | NUR ---
BS 118, NO INSULIN GIVEN.
--- NOTE | 2016-07-09 19:20 | NUR ---
SPOUSE AT BEDSIDE, CONVERSING, ASSISTED PT TO BATHROOM, PT REACHES FOR ITEMS SHE WALKS, PT NEEDS MOD ASSIST TO GET OUT OF BED, PT STATES IT IS RELATED TO THE PAIN IN HER BACK, PT STATES THIS IS A NEW ONSET, SHE ATTRIBUTES THE PAIN TO HER BED OR SITTING OR LYING TOO MUCH. PT NEEDS ASSISTANCE TO LIFT HER LEFT LEG BACK INTO BED. PT STATES SHE STILL HAS AN OCCASIONAL COUGH, BUT CAN'T GET ANYTHING UP.
[2016-07-09 19:45] VITALS: BP 145/64
--- NOTE | 2016-07-09 21:00 | NUR ---
REVIEWED MEDICATIONS WITH PATIENT, PT STATES THAT LASIX AND MIRALAX GAVE HER HALLUCINATIONS AND ONCE SHE STOPPED THE HALLUCINATIONS WENT AWAY. PT DENIES ANY OTHER NEEDS AT THIS TIME.
--- NOTE | 2016-07-10 00:29 | NUR ---
PT RESTING QUIETLY WITH EYES CLOSED, RESPIRATIONS REGULAR AND UNLABORED, NO S/S OF ACUTE DISTRESS.
[2016-07-10 05:58] LABS: BASOPHILS 0.8 % (0.0-2.0); EOSINOPHILS 2.4 % (0-7); HEMATOCRIT 37.4 % (36.0-48.0); HEMOGLOBIN 11.9 g/dL (12-16); LYMPHOCYTES 28.8 % (15-50); MCH 31.1 pg (26.0-34.0); MCHC 31.8 g/dL (31.0-37.0); MCV 97.7 fL (80.0-100.0); MEAN PLATELET VOLUME 11.1 fL (7.4-10.4); MONOCYTES 8.1 % (2-11); NEUTROPHILS 59.9 % (40-80); PLATELET COUNT 266 10x3/uL (130-400); RBC 3.83 10x6/uL (4.00-5.40); RDW 14.2 % (11.5-14.5); WBC 3.8 10x3/uL (4.8-10.8)
[2016-07-10 06:10] LABS: INR 3.72 (0.85-1.17); PROTIME 37.3 SECONDS (11.6-15.0)
[2016-07-10 06:17] LABS: CALC OSMOLALITY 279 mosm/kg (275-300); CALCIUM 9.5 mg/dL (8.5-10.1); CARBON DIOXIDE 28.8 mmol/L (21.0-32.0); CHLORIDE - SERUM 102 mmol/L (98-107); CREATININE - SERUM 0.7 mg/dL (0.6-1.3); GLUCOSE 131 mg/dL (74-106); POTASSIUM - SERUM 4.3 mmol/L (3.5-5.1); SODIUM 138 mmol/L (136-145); UREA NITROGEN 17 mg/dL (7-18); eGFR NON AFRICAN AMERICAN 86 mL/min (90-120)
--- NOTE | 2016-07-10 06:32 | NUR ---
PT IN BED WITH HOB UP FOR COMFORT, EYES CLOSED, CHEST RISING AND FALLING, BED IN LOWEST POSITION AND CALL LIGHT WITHIN REACH.
--- NOTE | 2016-07-10 07:30 | NUR ---
SITTING IN WHEELCHAIR IN THE ROOM.
[2016-07-10] MEDS ORDERED: LASIX40 MG PO (08:41)
[2016-07-10] MEDS ORDERED: Rythmol PO (08:41)
[2016-07-10 08:54] VITALS: BP 171/70
--- NOTE | 2016-07-10 10:13 | NUR ---
PATIENT DISCHARGING HOME WITH FAMILY. [facility] WILL RESUME CARE. NO DME NEEDED AT THIS TIME, PATIENT HAS WALKER. DR. VARGAS 07/22/16 @ 10:00. PATIENT CHOICE FORM FOR HOME HEALTH AND [facility] FORM EXPLAINED, SIGNED AND FILED IN CHART.PATIENT EDUCATED ON DEEP BREATHING EXERCISES. ORDERS HAVE BEEN FAXED WITH CONFORMATION RECIEVED
--- NOTE | 2016-07-10 11:20 | NUR ---
DISCHARGE INSTRUCTIONS GIVEN AND EXPLAINED TO PT. D/C HOME VIA WHEELCHAIR.
== END 2016-07-10 11:00 | disposition home health service (06) | DRG 194 ==
LOC: D.REHAB 18:19
PROVIDERS: ADMIT Emergency Medicine
DX: J13 Pneumonia due to Streptococcus pneumoniae (principal); J90 Pleural effusion, not elsewhere classified; I13.0 Hypertensive heart and chronic kidney disease with heart failure and stage 1 through stage 4 chronic kidney disease, or unspecified chronic kidney disease; I50.9 Heart failure, unspecified; J45.998 Other asthma; Z79.01 Long term (current) use of anticoagulants; N18.9 Chronic kidney disease, unspecified; J43.9 Emphysema, unspecified; Z95.2 Presence of prosthetic heart valve; E03.9 Hypothyroidism, unspecified; G25.81 Restless legs syndrome; I48.91 Unspecified atrial fibrillation; E11.9 Type 2 diabetes mellitus without complications; E78.5 Hyperlipidemia, unspecified

== ENCOUNTER 2016-08-23 02:32 | Emergency (ER) | payer MEDICARE, BC, OTHER ==
[2016-07-02 19:27] VITALS: BMI 35.9
[2016-08-23 03:23] LABS: BASOPHILS 0.8 % (0.0-2.0); EOSINOPHILS 0 % (0-7); HEMATOCRIT 34.6 % (36.0-48.0); HEMOGLOBIN 11.2 g/dL (12-16); IMMATURE GRANULOCYTES 0.2 % (0-5); MCH 32.3 pg (26.0-34.0); MCHC 32.4 g/dL (31.0-37.0); MCV 99.7 fL (80.0-100.0); MEAN PLATELET VOLUME 11.2 fL (7.4-10.4); PLATELET COUNT 159 10x3/uL (130-400); RBC 3.47 10x6/uL (4.00-5.40); WBC 5.1 10x3/uL (4.8-10.8)
[2016-08-23 03:52] LABS: ALBUMIN 3.5 g/dL (3.4-5.0); ANION GAP 13.6 mmol/L (8-16); BILIRUBIN - TOTAL 0.45 mg/dL (0.2-1.3); CALCIUM 9.8 mg/dL (8.5-10.1); CARBON DIOXIDE 30.3 mmol/L (21.0-32.0); POTASSIUM - SERUM 3.9 mmol/L (3.5-5.1)
== END 2016-08-23 06:47 | disposition home or self-care (01) ==
LOC: D.ER 02:32
PROVIDERS: Emergency Medicine
DX: E11.649 Type 2 diabetes mellitus with hypoglycemia without coma (principal); J45.909 Unspecified asthma, uncomplicated; Z95.1 Presence of aortocoronary bypass graft; M54.12 Radiculopathy, cervical region; I50.9 Heart failure, unspecified; J44.9 Chronic obstructive pulmonary disease, unspecified

== ENCOUNTER 2016-09-25 21:31 | Emergency (ER) | payer MEDICARE, OTHER, BC ==
[2016-07-02 19:27] VITALS: BMI 35.9
== END 2016-09-25 22:50 | disposition home or self-care (01) ==
LOC: D.ER 21:31
DX: G89.18 Other acute postprocedural pain (principal); M62.838 Other muscle spasm; J45.909 Unspecified asthma, uncomplicated; I25.810 Atherosclerosis of coronary artery bypass graft(s) without angina pectoris; I50.9 Heart failure, unspecified; J44.9 Chronic obstructive pulmonary disease, unspecified; E03.9 Hypothyroidism, unspecified; E11.9 Type 2 diabetes mellitus without complications

== ENCOUNTER 2016-09-27 15:12 | Emergency (ER) | payer MEDICARE, OTHER, BC ==
[2016-07-02 19:27] VITALS: BMI 35.9
== END 2016-09-27 19:01 | disposition home or self-care (01) ==
LOC: D.ER 15:12
DX: M84.421A Pathological fracture, right humerus, initial encounter for fracture (principal); J45.909 Unspecified asthma, uncomplicated; Z95.1 Presence of aortocoronary bypass graft; J44.9 Chronic obstructive pulmonary disease, unspecified; E03.9 Hypothyroidism, unspecified; E11.9 Type 2 diabetes mellitus without complications

== ENCOUNTER 2016-09-28 15:46 | Inpatient (IN) | payer MEDICARE, OTHER, BC ==
[~2016-09-28] VITALS: Ht 154.9 cm; Wt 79.8 kg
[2016-09-28 17:38] LABS: BASOPHILS 1.9 % (0-2); EOSINOPHILS 0 % (0-7); HEMOGLOBIN 12.2 g/dL (12-16); IMMATURE GRANULOCYTES 0.3 % (0-5); LYMPHOCYTES 25.7 % (15-50); MCH 33.2 pg (26.0-34.0); MCHC 32.1 g/dL (31.0-37.0); MCV 103.3 fL (80.0-100.0); MEAN PLATELET VOLUME 10.9 fL (7.4-10.4); MONOCYTES 10.8 % (2-11); NEUTROPHILS 61.3 % (40-80); PLATELET COUNT 179 10x3/uL (130-400); RBC 3.68 10x6/uL (4.00-5.40); RDW 14.4 % (11.5-14.5); WBC 5.8 10x3/uL (4.8-10.8)
[2016-09-28 17:39] VITALS: BMI 33.3
[2016-09-28 17:46] LABS: APTT 46.3 SECONDS (22.8-39.4); INR 4.03 (0.85-1.17); PROTIME 39.8 SECONDS (11.6-15.0)
[2016-09-28 17:55] LABS: ANION GAP 14.1 mmol/L (8-16); CALCIUM 10.3 mg/dL (8.5-10.1); CARBON DIOXIDE 27.8 mmol/L (21.0-32.0); POTASSIUM - SERUM 4.9 mmol/L (3.5-5.1)
[2016-09-28 20:00] VITALS: BP 137/64
--- NOTE | 2016-09-28 20:23 | NUR ---
PATIENT RESTING IN BED WITH EYES CLOSED. FAMILY AT BED SIDE. FSBS CHECKED AND 84. INSULIN HELD PER SLIDING SCALE. PATIENT ALERT AND ORIENTED. NO SIGNS OF DISTRESS NOTED. DENIES ANY NEEDS AT THIS TIME. BED LOW CALL LIGHT IN REACH
[2016-09-29] VITALS: BP 115/53
--- NOTE | 2016-09-29 00:15 | NUR ---
PATIENT IV NOTED SLIGHTLY SWOLLEN AT INSERTION SITE. IV DC'D WITH CATH TIP INTACT. NEW IV STARTED BY LATOYA DOSS TO RIGHT WRIST. TOLERATED WELL. DENIES ANY NEEDS AT THIS TIME.
--- NOTE | 2016-09-29 03:04 | NUR ---
PATIENT RESTING WITH EYES CLOSED AND NO VISIBLE SIGNS OF DISTRESS. BED IN LOWEST POSITION AND CALL LIGHT WITHIN REACH.
[2016-09-29 04:00] VITALS: BP 130/71
[2016-09-29 07:00] LABS: BASOPHILS 0.9 % (0-2); EOSINOPHILS 0 % (0-7); HEMOGLOBIN 11.6 g/dL (12-16); IMMATURE GRANULOCYTES 0.2 % (0-5); MCH 32.7 pg (26.0-34.0); MCHC 32.2 g/dL (31.0-37.0); MCV 101.4 fL (80.0-100.0); MEAN PLATELET VOLUME 11.3 fL (7.4-10.4); MONOCYTES 11.5 % (2-11); NEUTROPHILS 55.4 % (40-80); PLATELET COUNT 184 10x3/uL (130-400); RBC 3.55 10x6/uL (4.00-5.40); RDW 14.1 % (11.5-14.5); WBC 4.6 10x3/uL (4.8-10.8)
[2016-09-29 07:12] LABS: INR 3.32 (0.85-1.17)
[2016-09-29 07:19] LABS: ALBUMIN 3.1 g/dL (3.4-5.0); ANION GAP 13.2 mmol/L (8-16); BILIRUBIN - TOTAL 0.56 mg/dL (0.2-1.3); CALCIUM 9.8 mg/dL (8.5-10.1); CARBON DIOXIDE 29.4 mmol/L (21.0-32.0); POTASSIUM - SERUM 4.6 mmol/L (3.5-5.1)
--- NOTE | 2016-09-29 07:52 | NUR ---
AWAKE AND ALERT. ORIENTED X3. NO C/O AT THIS TIME. LUNGS ARE CLEAR BILATERALLY, BUT DIMINISHED THROUGHOUT, NO COUGH NOTED. SKIN IS INTACT WITHOUT REDNESS EXCEPT YEAST TO APRON AND JACKIE AREA. WILL NOTIFY MD. IV TO RIGHT WRIST IS PATENT WITHOUT REDNESS AT INSERTION SITE. MCCULLOUGH PATENT WITH CLEAR YELLOW URINE. DENIES NEEDS. FAMILY AT [facility].
[2016-09-29 08:18] VITALS: BP 130/49
--- NOTE | 2016-09-29 10:30 | NUR ---
URINE COLLECTED FROM MCCULLOUGH AND SPECIMEN SENT TO LAB.
[2016-09-29 10:37] LABS: APPEARANCE CLEAR (CLEAR); BILIRUBIN NEGATIVE (NEGATIVE); COLOR YELLOW (YELLOW); GLUCOSE NEGATIVE (NEGATIVE); KETONE NEGATIVE (NEGATIVE); LEUKOCYTE ESTERASE TRACE (NEGATIVE); NITRITE NEGATIVE (NEGATIVE); PROTEIN NEGATIVE (NEGATIVE); UROBILINOGEN NORMAL (NORMAL)
[2016-09-29 10:38] LABS: BACTERIA FEW /hpf (NONE SEEN); EPITHELIAL CELLS 0-5 /hpf (0-5); MUCUS <1+ /lpf (NONE SEEN); RED CELLS - URINE 0-5 /hpf (0-5); WHITE CELLS - URINE OCC /hpf (0-5)
[2016-09-29 11:52] VITALS: BP 124/69
[2016-09-29 12:43] VITALS: Ht 154.9 cm; Wt 79.8 kg
--- NOTE | 2016-09-29 13:43 | NUR ---
TO XRAY PER BED. DEMEROL 25MG BOLUS GIVEN
--- NOTE | 2016-09-29 14:00 | NUR ---
ATE MOST OF LUNCH WITH DAUGHTER'S ASSISTANCE. DENIES NEEDS.
--- NOTE | 2016-09-29 14:50 | NUR ---
RETURNED FROM PROCEDURE. FAMILY IN ROOM.
[2016-09-29 16:28] VITALS: BP 105/50
--- NOTE | 2016-09-29 16:45 | NUR ---
OFF UNIT VIA BED FOR TESTS.
--- NOTE | 2016-09-29 17:45 | NUR ---
RETURNED FORM TESTS. FAMILY IN ROOM. ASSISTED WITH MEAL. NO NEEDS NOTED. FSBS 107. ENCOURAGED TO EAT ALL OF MEAL.
--- NOTE | 2016-09-29 18:12 | NUR ---
[facility] Status: Urgent Accout number: [id number] Admission Date: 09-28-2016 : 1939 Admission Diagnosis: Attending: LUCIE Current LOS: 1 Anticipated DC Date: 10-05-2016 Planned Disposition: Home with Home Health Primary Insurance: MEDICARE A & B Discharge Planning Comments: CM MET WITH PATIENT, SPOUSE (CHARLENE), AND DAUGHTER (DEIDRE) REGARDING D/C NEEDS AND PLANS. PATIENT LIVES AT HOME WITH FAMILY AND IT IS SAFE AND HAS NO STEPS OR STAIRS. PATIENT IS PARTIAL DEPENDENT-SHE FEEDS HERSELF AND NEEDS HELP OTHERWISE. PATIENT HAS A ROLATOR WALKER, BS COMMODE, SHOWER CHAIR, HAND HELD SHOWER, WHEELCHAIR, LIFT CHAIR, OXYGEN AT HS ([facility]CARE), GLUCOMETER (CHECKS 4X DAY). PATIENTS PCP IS DR. VARGAS AND PHARMACY IS [facility]. PATIENT HAD [facility] NOT TOO LONG AGO. PATIENTS FAMILY WANTS TO WAIT AND SEE IF HOME HEALTH IS NEEDED OR SKILLED. CM WILL CONTINUE TO FOLLOW PATIENT WITH D/C NEEDS AND PLANS. PCP DR. [facility]- [phone] DEIDRE (DAUGHTER) [phone] Trading Specialist: Regina Marin Is the patient Alert and Oriented? Yes 0 * How many steps to enter\exit or inside your home? 0 0 * PCP DR. VARGAS 0 * Pharmacy [facility] * Preadmission Environment Home with Family 0 * ADLs Partial Dependent 0 * Partial ADLs (Assistance needed) Ambulation Bathing Dressing Medication Management Toileting Transfers 0 * Equipment Bedside Commode Glucometer Oxygen Rolling Walker Shower Chair Wheelchair 0 * Other Equipment HH SHOWER, LIFT CHAIR, 0 * List name and contact numbers for known caregivers / representatives who currently or will assist patient after discharge: DEIDRE LOWERY [phone] (DAUGHTER) 0 * Community resources currently utilized None 0 * Additional services required to return to the preadmission environment? Yes 0 * Can the patient safely return to the preadmission environment? Yes 0 * Has this patient been hospitalized within the prior 30 days at any hospital? No 0 Grand Total: 0
[2016-09-29 20:00] VITALS: BP 156/72
[2016-09-30] VITALS: BP 158/57
--- NOTE | 2016-09-30 01:30 | NUR ---
REC'D PATIENT LYING ON HER RIGHT SIDE. ALERT AND ORIENTED X4. ALTHOUGH IS A&O IS AGITATED CAUSING SOME CONFUSION. IS WANTING TO GET OOB. DAUGHTER AND I KEEP RE ORIENTING HER. WILL CONT TO MONITOR. REPORTING PAIN IN HER LEFT SHOULDER STATING "IT HURTS" AND SCREAMS OUT IN PAIN IF ANYONE TOUCHES IT. WILL TRY TO KEEP HER COMFORTABLE. DENIED FURTHER NEEDS AT THIS TIME. INSTRUCTED TO CALL IF NEEDED ANYTHING. VERBALIZED UNDERSTANDING. BED LOW, LOCKED, CALL LIGHT IN REACH, ALARM ON.
[2016-09-30 04:00] VITALS: BP 178/75
[2016-09-30 05:57] LABS: BASOPHILS 0.7 % (0-2); EOSINOPHILS 0 % (0-7); HEMATOCRIT 36.2 % (36.0-48.0); HEMOGLOBIN 11.8 g/dL (12-16); IMMATURE GRANULOCYTES 0.2 % (0-5); LYMPHOCYTES 25.3 % (15-50); MCH 32.6 pg (26.0-34.0); MCHC 32.6 g/dL (31.0-37.0); MEAN PLATELET VOLUME 11.5 fL (7.4-10.4); MONOCYTES 11.9 % (2-11); NEUTROPHILS 61.9 % (40-80); PLATELET COUNT 187 10x3/uL (130-400); RBC 3.62 10x6/uL (4.00-5.40); RDW 13.9 % (11.5-14.5); WBC 5.5 10x3/uL (4.8-10.8)
[2016-09-30 06:24] LABS: INR 1.81 (0.85-1.17)
[2016-09-30 06:30] LABS: ALBUMIN 3.2 g/dL (3.4-5.0); ANION GAP 14.2 mmol/L (8-16); BILIRUBIN - TOTAL 0.72 mg/dL (0.2-1.3); CALCIUM 10.4 mg/dL (8.5-10.1); CARBON DIOXIDE 27.8 mmol/L (21.0-32.0); PROTEIN - SERUM 6.3 g/dL (6.4-8.2)
--- NOTE | 2016-09-30 07:15 | NUR ---
REPORT RECEIVED FROM YACHT HAND NURSE. CALL LIGHT IN REACH.
[2016-09-30 07:56] VITALS: BP 130/58
[2016-09-30 08:22] LABS: CEA 2.3 ng/mL (0.0-4.7)
--- NOTE | 2016-09-30 08:57 | NUR ---
NUTRITION MONITORING & EVAL CHART REVIEWED, PT VISIT. DTR AND PT SPOUSE AT BEDSIDE. ANKUR ADDED TO DIET ORDER PER DTR REQUEST. RD FOLLOWING
--- NOTE | 2016-09-30 09:10 | NUR ---
ASSESSMENT COMPLETED PER LATOYA GUILLERMO. BED ALARM ON. CALL LIGHT IN REACH. KIAN CONTINUE WITH PLAN OF CARE.
--- NOTE | 2016-09-30 11:49 | NUR ---
AM MEDS ADMINISTERED. FSBS 147 SO NO COVERAGE REQUIRED. FAMILY IN ROOM. CALL LIGHT IN REACH.
[2016-09-30 12:34] VITALS: BP 134/62
--- NOTE | 2016-09-30 13:00 | NUR ---
REPOSITONED FOR COMFORT.
--- NOTE | 2016-09-30 15:15 | NUR ---
FAMILY IN ROOM AT THIS TIME. NO DISTRESS NOTED OR NEEDS VOICED.
[2016-09-30 15:50] VITALS: BP 153/74
--- NOTE | 2016-09-30 16:10 | NUR ---
DULCOLAX SUPP X2 PER ORDER. PLACED ON BEDPAN.
--- NOTE | 2016-09-30 18:57 | NUR ---
VIOLETTA BUTLER PAGED ABOUT AIR MATTRESS. NO OTHER CHANGES IN INITIAL ASSESSMENT. BED ALARM ON. WILL CONTINUE WITH PLAN OF CARE.
--- NOTE | 2016-09-30 19:20 | NUR ---
SPOKE WITH VIOLETTA BUTLER ABOUT MATTRESS. WILL ADDRESS TOMORROW.
[2016-09-30 20:00] VITALS: BP 143/82
--- NOTE | 2016-09-30 23:04 | NUR ---
REC'D PATIENT LYING IN BED ON HER RIGHT SIDE. ALERT AND ORIENTED X3. REPORTED PAIN 10/10. WITH THE SLIGHTEST TOUCH TO HER LEFT ARM/SHOULDER SHE SCREAMS OUT IN PAIN. WILL NOT ALLOW STAFF TO REPOSITION HER. WILL CONT TO OFFER THROUGHOUT THE NIGHT. DENIED FURTHER NEEDS AT THIS TIME. FAMILY IS IN ROOM AT BEDSIDE. INSTRUCTED TO CALL IF NEEDED ANYTHING. VERBALIZED UNDERSTANDING. WILL CONT TO MONITOR THOUGHOUT NIGHT. BED LOW, LOCKED, CALL LIGHT IN REACH, ALARM ON.
[2016-10-01] VITALS: BP 169/60
--- NOTE | 2016-10-01 01:45 | NUR ---
PATIENT IS STILL AWAKE AND YELLING OUT IN PAIN. I CALMED HER DOWN SOME BY TALKING WITH HER. WILL CONT TO MONITOR. BED LOW, LOCKED, CALL LIGHT IN REACH, ALARM ON.
[2016-10-01 04:00] VITALS: BP 144/73
[2016-10-01 06:35] LABS: ALBUMIN 3.3 g/dL (3.4-5.0); ANION GAP 14.4 mmol/L (8-16); BILIRUBIN - TOTAL 0.9 mg/dL (0.2-1.3); CARBON DIOXIDE 29.5 mmol/L (21.0-32.0); CREATININE - SERUM 0.9 mg/dL (0.6-1.3); POTASSIUM - SERUM 4.9 mmol/L (3.5-5.1); PROTEIN - SERUM 6.1 g/dL (6.4-8.2)
[2016-10-01 06:37] LABS: INR 1.11 (0.85-1.17); PROTIME 14.1 SECONDS (11.6-15.0)
--- NOTE | 2016-10-01 07:15 | NUR ---
REPORT RECEIVED FROM PRINTING MACHINE OPERATOR TAPE RULES NURSE. CALL LIGHT IN REACH.
[2016-10-01 07:26] LABS: BASOPHILS 2.2 % (0-2); EOSINOPHILS 0 % (0-7); HEMATOCRIT 37.1 % (36.0-48.0); HEMOGLOBIN 12.1 g/dL (12-16); IMMATURE GRANULOCYTES 0.7 % (0-5); LYMPHOCYTES 22.9 % (15-50); MCH 32.8 pg (26.0-34.0); MCHC 32.6 g/dL (31.0-37.0); MCV 100.5 fL (80.0-100.0); MONOCYTES 13.8 % (2-11); NEUTROPHILS 60.4 % (40-80); PLATELET COUNT 200 10x3/uL (130-400); RBC 3.69 10x6/uL (4.00-5.40); WBC 5.5 10x3/uL (4.8-10.8)
[2016-10-01 08:09] VITALS: BP 149/62
[2016-10-01 08:21] LABS: IMMUNOGLOBULIN E 13 IU/mL (0-100)
[2016-10-01 09:17] LABS: CA 19-9 15 U/mL (0-35); CA125 38.5 U/mL (0.0-38.1); CEA 2.3 ng/mL (0.0-4.7)
--- NOTE | 2016-10-01 09:20 | NUR ---
ASSESSMENT COMPLETED PER RN. BED ALARM ON. CALL LIGHT IN REACH. WILL CONTINUE WITH PLAN OF CARE.
[2016-10-01 10:21] LABS: IMMUNOGLOBULIN A 13 mg/dL (64-422); IMMUNOGLOBULIN G 356 mg/dL (700-1600); IMMUNOGLOBULIN M 8 mg/dL (26-217)
[2016-10-01 10:57] VITALS: BP 149/69
--- NOTE | 2016-10-01 11:30 | NUR ---
NO NEEDS VOICED AT THIS TIME. CALL LIGHT IN REACH.
--- NOTE | 2016-10-01 13:50 | NUR ---
FAMILY IN ROOM AT THIS TIME. NO DISTRESS NOTED, CALL LIGHT IN REACH.
--- NOTE | 2016-10-01 15:20 | NUR ---
CONSENT FORMS SIGNED AND WITNESSED.
[2016-10-01 15:33] VITALS: BP 134/53
--- NOTE | 2016-10-01 17:27 | NUR ---
FSBS 120 SO NO COVERAGE REQUIRED.
--- NOTE | 2016-10-01 18:03 | NUR ---
TRANSFRERRED TO ROOM 6 VIA BED.
[2016-10-02] VITALS: BP 95/71
[2016-10-02 04:00] VITALS: BP 107/41
[2016-10-02 06:04] LABS: INR 1.11 (0.85-1.17); PROTIME 14.2 SECONDS (11.6-15.0)
[2016-10-02 06:15] LABS: ALBUMIN 2.9 g/dL (3.4-5.0); ANION GAP 12.2 mmol/L (8-16); BILIRUBIN - TOTAL 0.6 mg/dL (0.2-1.3); CALCIUM 11.6 mg/dL (8.5-10.1); CARBON DIOXIDE 30.5 mmol/L (21.0-32.0); POTASSIUM - SERUM 4.7 mmol/L (3.5-5.1); PROTEIN - SERUM 5.9 g/dL (6.4-8.2)
[2016-10-02 06:17] LABS: CREATININE - SERUM 1.2 mg/dL (0.6-1.3)
[2016-10-02 06:43] LABS: BASOPHILS 2.6 % (0-2); EOSINOPHILS 0 % (0-7); HEMOGLOBIN 10.1 g/dL (12-16); IMMATURE GRANULOCYTES 0.9 % (0-5); LYMPHOCYTES 20.3 % (15-50); MCH 33.2 pg (26.0-34.0); MCHC 32.6 g/dL (31.0-37.0); MEAN PLATELET VOLUME 11.6 fL (7.4-10.4); MONOCYTES 14.3 % (2-11); NEUTROPHILS 61.9 % (40-80); PLATELET COUNT 204 10x3/uL (130-400); RBC 3.04 10x6/uL (4.00-5.40); RDW 14.1 % (11.5-14.5); WBC 5.8 10x3/uL (4.8-10.8)
[2016-10-02 08:12] VITALS: BP 95/36
[2016-10-02 12:14] VITALS: BP 114/50
--- NOTE | 2016-10-02 13:09 | NUR ---
PRE-OPS GIVEN. TO OR BY BED.
--- NOTE | 2016-10-02 15:39 | NUR ---
CARDIZEM INFUSING ON PUMP @10CC ON ADMIT TO RR FOR A-FIB
--- NOTE | 2016-10-02 16:08 | NUR ---
200CC OF CLEAR YELLOW URINE IN BAG ON ADMIT
--- NOTE | 2016-10-02 16:09 | NUR ---
SLING APPLIED TO LEFT ARM IN RR
[2016-10-02 16:29] VITALS: BP 131/70
--- NOTE | 2016-10-02 16:45 | NUR ---
BACK FROM OR. VS WNL. LEFT CHEST DRSG CLEAN AND DRY. LEFT ARM IN SLING. WILL CONT. PLAN OF CARE.
[2016-10-02 17:12] LABS: SPE - A/G RATIO 1.1 (0.7-1.7); SPE - ALBUMIN 2.9 g/dL (2.9-4.4); SPE - ALPHA-1 GLOBULIN 0.2 g/dL (0.0-0.4); SPE - ALPHA-2 GLOBULIN 0.7 g/dL (0.4-1.0); SPE - BETA GLOBULIN 0.9 g/dL (0.7-1.3); SPE - GAMMA GLOBULIN 0.8 g/dL (0.4-1.8); SPE - M-SPIKE 0.3 g/dL (Not Observed); SPE - TOTAL PROTEIN 5.5 g/dL (6.0-8.5)
[2016-10-02 20:00] VITALS: BP 106/54
[2016-10-03] VITALS: BP 102/51
[2016-10-03 04:00] VITALS: BP 92/51
[2016-10-03 05:02] LABS: BASOPHILS 2.4 % (0-2); EOSINOPHILS 0 % (0-7); IMMATURE GRANULOCYTES 0.4 % (0-5); LYMPHOCYTES 19.5 % (15-50); MCHC 32.2 g/dL (31.0-37.0); MCV 102.6 fL (80.0-100.0); MONOCYTES 13.6 % (2-11); NEUTROPHILS 64.1 % (40-80); PLATELET COUNT 189 10x3/uL (130-400); RDW 14.5 % (11.5-14.5); WBC 6.7 10x3/uL (4.8-10.8)
[2016-10-03 05:06] LABS: HEMATOCRIT 23.9 % (36.0-48.0); HEMOGLOBIN 7.7 g/dL (12-16); RBC 2.33 10x6/uL (4.00-5.40)
[2016-10-03 05:17] LABS: INR 1.14 (0.85-1.17); PROTIME 14.5 SECONDS (11.6-15.0)
[2016-10-03 05:31] LABS: ALBUMIN 2.5 g/dL (3.4-5.0); ANION GAP 13.1 mmol/L (8-16); BILIRUBIN - TOTAL 0.39 mg/dL (0.2-1.3); CALCIUM 10.9 mg/dL (8.5-10.1); CARBON DIOXIDE 27.2 mmol/L (21.0-32.0); POTASSIUM - SERUM 5.3 mmol/L (3.5-5.1); PROTEIN - SERUM 5.3 g/dL (6.4-8.2)
[2016-10-03 05:34] LABS: CREATININE - SERUM 2.1 mg/dL (0.6-1.3)
[2016-10-03 07:23] LABS: IMMUNOGLOBULIN D <0.59 mg/dL (<14.11)
[2016-10-03 08:00] VITALS: BP 97/51
--- NOTE | 2016-10-03 11:00 | NUR ---
IV STARTED 20 GA TO RIGHT AC X 1 ATTEMPT, COVERED WITH OP SITE.
[2016-10-03 11:10] LABS: BETA-2 MICROGLOBULIN 3.2 mg/L (0.6-2.4)
[2016-10-03 12:00] VITALS: BP 111/52
--- NOTE | 2016-10-03 14:06 | NUR ---
1ST UNIT PRBC STARTED. VS WNL. LINE IS PATENT. WILL MONITOR.
[2016-10-03 16:00] VITALS: BP 112/38
--- NOTE | 2016-10-03 16:40 | NUR ---
1ST UNIT PRBC COMPLETED WITHOUT ADVERSE REACTIONS NOTED.
--- NOTE | 2016-10-03 19:00 | NUR ---
RECEIVED REPORT AND ASSUMED PT CARE FROM DAY SHIFT NURSE @ THIS TIME.
[2016-10-03 20:00] VITALS: BP 123/56
--- NOTE | 2016-10-03 21:30 | NUR ---
SECOND UNIT PRBC'S FINISHED TRANSFUSING. PT MATY WELL. VSS, AFEBRILE. PT TOLERATED WELL. NO ADVERSE REACTIONS NOTED. BED ALARM TURNED ON. PT'S FAMILY IS LEAVING FOR THE EVENING. WILL MONITOR.
[2016-10-04] VITALS: BP 109/47
[2016-10-04 04:00] VITALS: BP 98/57
[2016-10-04 06:57] LABS: BASOPHILS 2.3 % (0-2); EOSINOPHILS 0 % (0-7); HEMATOCRIT 26.8 % (36.0-48.0); HEMOGLOBIN 8.9 g/dL (12-16); IMMATURE GRANULOCYTES 1.1 % (0-5); LYMPHOCYTES 16.3 % (15-50); MCH 31.9 pg (26.0-34.0); MCHC 33.2 g/dL (31.0-37.0); MEAN PLATELET VOLUME 11.9 fL (7.4-10.4); MONOCYTES 12.9 % (2-11); NEUTROPHILS 67.4 % (40-80); RBC 2.79 10x6/uL (4.00-5.40); RDW 17.9 % (11.5-14.5); WBC 6.1 10x3/uL (4.8-10.8)
[2016-10-04 07:03] LABS: MCV 96.1 fL (80.0-100.0); PLATELET COUNT 131 10x3/uL (130-400)
[2016-10-04 07:17] LABS: ANION GAP 13.2 mmol/L (8-16); CALCIUM 11.4 mg/dL (8.5-10.1); CARBON DIOXIDE 25.3 mmol/L (21.0-32.0); POTASSIUM - SERUM 5.5 mmol/L (3.5-5.1)
[2016-10-04 07:18] LABS: CREATININE - SERUM 3.3 mg/dL (0.6-1.3)
[2016-10-04 08:00] VITALS: BP 96/32
--- NOTE | 2016-10-04 10:33 | NUR ---
UP SOB TO DANGLE WITH PT ASSIST.
[2016-10-04 12:00] VITALS: BP 115/46
--- NOTE | 2016-10-04 14:42 | NUR ---
URINE SPECIMEN COLLECTED AND TAKEN TO LAB. WILL MONITOR.
[2016-10-04 15:01] LABS: APPEARANCE CLEAR (CLEAR); BILIRUBIN NEGATIVE (NEGATIVE); COLOR STRAW (YELLOW); GLUCOSE NEGATIVE (NEGATIVE); KETONE NEGATIVE (NEGATIVE); LEUKOCYTE ESTERASE NEGATIVE (NEGATIVE); NITRITE NEGATIVE (NEGATIVE); PROTEIN TRACE mg/dL (NEGATIVE); SPECIFIC GRAVITY 1.015 (1.005-1.020); UROBILINOGEN NORMAL (NORMAL)
[2016-10-04 15:02] LABS: BACTERIA FEW /hpf (NONE SEEN); CALCIUM OXALATE CRYSTALS OCC /hpf (NONE SEEN); EPITHELIAL CELLS NSEEN /hpf (0-5); RED CELLS - URINE 0-5 /hpf (0-5); WHITE CELLS - URINE NSEEN /hpf (0-5)
[2016-10-04 15:05] LABS: CREATININE - URINE 43.2 mg/dL (30-125); POTASSIUM - URINE 40.6 MMOL/L (12.0-62.0)
--- NOTE | 2016-10-04 15:17 | NUR ---
DRSG REMOVED FROM LEFT ARM. BLISTERS NOTED AT SITE. INSTRUCED BY DR. BERKOWITZ TO LEAVE OPEN TO AIR.
--- NOTE | 2016-10-04 19:00 | NUR ---
INITIAL ROUNDS MADE. PT LYING IN BED WITH FAMILY IN ROOM. PT'S FAMILY REFUSING RT TREATMENTS TONIGHT. STATE "WE JUST WANT TO MAKE SURE SHE STAYS COMFORTABLE. DISCUSSING HOSPICE".
[2016-10-04 20:00] VITALS: BP 125/41
[2016-10-05] VITALS: BP 125/47
--- NOTE | 2016-10-05 01:05 | NUR ---
ELECTROTYPE MOLDER AT BEDSIDE FOR VS. NEEDS ADDRESSED AT THIS TIME. CALL LIGHT IN REACH. WILL CONT TO MONITOR.
[2016-10-05 04:00] VITALS: BP 115/52
[2016-10-05 06:18] LABS: BASOPHILS 1.1 % (0-2); EOSINOPHILS 0 % (0-7); HEMATOCRIT 25.6 % (36.0-48.0); HEMOGLOBIN 8.6 g/dL (12-16); IMMATURE GRANULOCYTES 1.5 % (0-5); LYMPHOCYTES 14.3 % (15-50); MCH 32.6 pg (26.0-34.0); MCHC 33.6 g/dL (31.0-37.0); MEAN PLATELET VOLUME 11.5 fL (7.4-10.4); MONOCYTES 14.1 % (2-11); PLATELET COUNT 142 10x3/uL (130-400); RBC 2.64 10x6/uL (4.00-5.40); RDW 17.1 % (11.5-14.5); WBC 5.3 10x3/uL (4.8-10.8)
[2016-10-05 06:36] LABS: ANION GAP 11.6 mmol/L (8-16); CALCIUM 11.5 mg/dL (8.5-10.1); CARBON DIOXIDE 26.5 mmol/L (21.0-32.0); CREATININE - SERUM 3.8 mg/dL (0.6-1.3); POTASSIUM - SERUM 5.1 mmol/L (3.5-5.1)
[2016-10-05 08:13] VITALS: BP 137/68
--- NOTE | 2016-10-05 10:09 | NUR ---
TELEMETRY CAF. IV PATENT. FAMILY AT BS. RESTS ON 1ST STEP MATRESS WITH CALL LIGHT IN REACH. WILL MONITOR NEEDS.
[2016-10-05 13:24] VITALS: BP 113/48
--- NOTE | 2016-10-05 15:28 | NUR ---
Late Entry 1300 assistant corporate secretary advised CEDRIC that DR Chu had ordered a hospice consult. CEDRIC spoke with the family. The and daughter were at the bedside. They have a connection with [facility]. Their interim controller's is a bereavement counselor for [facility]. Contact # [phone]. . ![phone] to [facility]. Spoke with Elaine. She called and spoke with the family. [facility] to meet with the family in the AM.
[2016-10-05 17:06] VITALS: BP 117/52
--- NOTE | 2016-10-05 19:00 | NUR ---
INITIAL ROUNDS MADE. PT SITTING UP IN BED WITH FAMILY IN ROOM. PT DENIES NEEDS AT THIS TIME. CALL LIGHT IN REACH. TELE CONTROLLED AFIB 70. O2 2L NC. WILL CONT TO MONITOR.
[2016-10-05 19:45] VITALS: BP 117/56
--- NOTE | 2016-10-06 00:35 | NUR ---
MEDICAL OFFICE TECHNOLOGIST AT BEDSIDE FOR VS. NEEDS ADDRESSED AT THIS TIME. CALL LIGHT IN REACH. WILL CONT TO MONITOR.
[2016-10-06 01:51] VITALS: BP 133/56
--- NOTE | 2016-10-06 05:02 | NUR ---
DAUGHTER COMES OUT TO GET NURSE, PT IS HAVING SEIZURE LIKE ACTIVITY AND UNABLE TO RESPOND TO STIMULI AT THIS TIME. IMMEDIATELY FOLLOWING JERKING MOVEMENTS, PT BECAME POSTICTAL.
[2016-10-06 05:20] LABS: BASOPHILS 0.2 % (0-2); EOSINOPHILS 0 % (0-7); HEMATOCRIT 22.4 % (36.0-48.0); IMMATURE GRANULOCYTES 0.4 % (0-5); LYMPHOCYTES 11.7 % (15-50); MCHC 32.6 g/dL (31.0-37.0); MCV 98.2 fL (80.0-100.0); MEAN PLATELET VOLUME 10.9 fL (7.4-10.4); MONOCYTES 10.6 % (2-11); NEUTROPHILS 77.1 % (40-80); PLATELET COUNT 148 10x3/uL (130-400); RBC 2.28 10x6/uL (4.00-5.40); RDW 16.9 % (11.5-14.5); WBC 5.2 10x3/uL (4.8-10.8)
[2016-10-06 05:26] LABS: ANION GAP 14.7 mmol/L (8-16); CALCIUM 10.5 mg/dL (8.5-10.1); CARBON DIOXIDE 22.4 mmol/L (21.0-32.0); CREATININE - SERUM 3.9 mg/dL (0.6-1.3); POTASSIUM - SERUM 5.1 mmol/L (3.5-5.1)
[2016-10-06 05:30] LABS: HEMOGLOBIN 7.3 g/dL (12-16)
[2016-10-06 05:48] VITALS: BP 141/74
--- NOTE | 2016-10-06 06:29 | NUR ---
RESTING WELL WITH FAMILY IN ROOM. CONT TO MONITOR.
--- NOTE | 2016-10-06 07:15 | NUR ---
RESTING QUIETLY RESP UNLABORED FAMILY AT BEDSIDE WILL CONTINUE TO MONITOR
--- NOTE | 2016-10-06 07:33 | NUR ---
ASSESSMENT COMPLETED. TELEMERTY SHOWS CAF AT 72. RIGHT AC WITH NS AT 50, CARDIZEM 10, AND A DEMERAL APPLICATION TESTER PUMP WITH SETTINGS OF 10/10/AND 100. PT IS ON A FIRST STEP OVERLAY. MCCULLOUGH CATH PATENT TO BEDSIDE GRAVITY BAG. SCDS ON. INCISION TO RIGHT SHOULDER WITH MEENU INTACT. FAMILY AT BEDSIDE. WILL MONITOR
[2016-10-06 08:19] VITALS: BP 143/56
--- NOTE | 2016-10-06 08:25 | NUR ---
PT HAD A SEIZURE. PAGE PLACED TO DR BERKOWITZ AND ROCIO.
--- NOTE | 2016-10-06 09:28 | NUR ---
Patient Name: JAIME THOMAS Encounter No: [id number] : 1940 Primary Insurance: MEDICARE A & B Anticipated DC Date: 10-06-2016 Planned Disposition: Hospice Medical Facility External Planned Provider: [facility] DCP follow-up note: CM RECEIVED REQUEST FROM BEDSIDE NURSE TO SEE FAMILY SOON POSSIBLE. CM MET WITH PT AND FAMILY IN ROOM. FAMILY HAS DECIDED ON HOSPICE FOR PT AND HAD MADE ARRANGEMENT TO MEET WITH [facility] TODAY AT 1000. PT'S FAMILY NOW DOES NOT WANT TO MOVE PT AND WANTS TO KEEP PT HERE FOR INPATIENT HOSPICE, REQUESTED CM CONTACT [facility] FOR HOSPICE EVALUATION AND INPATIENT HOSPICE AT [place] SOON POSSIBLE PT HAS HAD TWO SEIZURES THIS MORNING AND THEY WANT PT TO BE KEPT COMFORTABLE POSSIBLE. IMPORTANT MESSAGE FROM MEDICARE PROVIDED AND EXPLAINED. CM CALLED [facility], , SPOKE TO IMELDA AND CANCELLED [facility] REFERRAL. CM CALLED [facility], , SPOKE TO JESS AND PROVIDED REFERRAL INFORMATION, NAVARRO ANN TO ARRIVE SHORTLY TO EVALUTATE PT. CM FAXED RERERRAL TO [facility] AT [phone]. FAMILY NOTIFIED. CM WAITING HOSPICE EVALUATION AND ARRANGEMENTS BY [facility]. Derek Rashid, CASE MANAGEMENT
--- NOTE | 2016-10-06 10:28 | NUR ---
PT IS TO GO ON HOSPICE. MEDS HELD DUE TO JOSSELIN. WILL MONITOR
[2016-10-06 11:52] VITALS: BP 149/44
--- NOTE | 2016-10-06 12:57 | NUR ---
Patient Name: JAIME THOMAS Encounter No: [id number] : 1940 Primary Insurance: MEDICARE A & B Anticipated DC Date: 10-06-2016 Planned Disposition: Hospice Medical Facility External Planned Provider: [facility] DCP follow-up note: CM SPOKE TO MARILYNN OF [facility] WHO REPORTS THAT [facility] WILL ADMIT PT TO INPATIENT HOSPICE SHORTLY, FAMILY IN AGREEMENT WITH INPATIENT HOSPICE SERVICES, [facility] / FAMILY IN PROCESS OF GETTING LEGALS SIGNED NOW. CM TO FOLLOW AND ASSIST IF NEEDED. Derek Rashid, CASE MANAGEMENT
--- NOTE | 2016-10-06 14:35 | NUR ---
PT DISCHARGED TO HOSPICE CARE
--- NOTE | 2016-10-06 15:46 | NUR ---
DISCHARGED AND ADMITTED TO HOSPICE
[2016-10-06 16:12] LABS: SPE - A/G RATIO 1.4 (0.7-1.7); SPE - ALBUMIN 3.1 g/dL (2.9-4.4); SPE - ALPHA-1 GLOBULIN 0.3 g/dL (0.0-0.4); SPE - ALPHA-2 GLOBULIN 0.8 g/dL (0.4-1.0); SPE - BETA GLOBULIN 0.8 g/dL (0.7-1.3); SPE - GAMMA GLOBULIN 0.3 g/dL (0.4-1.8); SPE - M-SPIKE Not Observed g/dL (Not Observed); SPE - TOTAL PROTEIN 5.3 g/dL (6.0-8.5)
--- NOTE | 2016-10-09 13:39 | OP ---
PATIENT NAME: JAIME THOMAS MEDICAL RECORD: [id number] :[birth year] LOCATION:D.M2 D.2116 ADMISSION DATE:09/28/16 SURGEON: DALE BERKOWITZ MD DATE OF OPERATION: 10/02/2016 PREOPERATIVE DIAGNOSIS: Pathologic fracture of the right humerus. POSTOPERATIVE DIAGNOSIS: Pathologic fracture of the right humerus. PROCEDURES: 1. Intramedullary nailing of pathologic fracture of the right humerus. 2. Intraoperative biopsy. SURGEON: Dale Berkowitz MD. ANESTHESIA: General. INTRAOPERATIVE COMPLICATIONS: None. SUMMARY OF PATHOLOGIC FINDINGS: The patient had essentially obliterated bone at the area of the fracture consistent diagnosis of pathologic fracture. OPERATIVE SUMMARY IN DETAIL: After obtaining the appropriate preoperative orthopedic surgery consent as well as anesthetic consultation, evaluation and clearance, the patient was brought to the operating room and placed on the operating table in supine position. After adequate general laryngeal mask was administered, the patient was placed in the beach chair position. All pressure points were well padded. She was held firmly to the operating table using the vacuum pack suction system. Left upper extremity and shoulder were then prepped and draped in routine sterile fashion. A very small incision was made over the anterolateral aspect of the acromion. Under direct fluoroscopic visualization ____ was created to introduce the guidewire, which was then passed across the fracture site. A second laparoscopic tumor grasper was then utilized to get multiple samples from in and about the area of the fracture. At this point, a 9 x 210 humeral nail was utilized for stabilization without reaming as to avoid further spread of the multiple myeloma. It was fixed proximally and distally with transfixation screws resulting in nailing of the pathologic fracture. Wounds created were irrigated and closed with sue. Sterile dressings were applied. The patient was awakened, taken to recovery room in stable condition. All final needle and sponge counts were correct. TRANSINT:[id number] Voice Confirmation ID: [id number] DOCUMENT ID: [id number] DALE BERKOWITZ MD at 1339 CC: [id number] DICTATION DATE: 10/08/16 0503 ADULT SPECIALIST: 10/08/16 1332 DIS IN 10/06/16 [place] [address]
== END 2016-10-06 15:47 | disposition home or self-care (01) | DRG 493 ==
LOC: D.MS 15:46 → D.M2 15:46
PROVIDERS: Family Medicine; Internal Medicine; Internal Medicine Hematology & Oncology; ADMIT Orthopaedic Surgery
PROC: 0JBF3ZX Excision of Left Upper Arm Subcutaneous Tissue and Fascia, Percutaneous Approach, Diagnostic (ICD-10-PCS; 2016-10-02)
PROC: 0PH Upper Bones, Insertion (ICD-10-PCS; principal; 2016-10-02 11:30)
DX: S42.202A Unspecified fracture of upper end of left humerus, initial encounter for closed fracture (principal); S22.32XA Fracture of one rib, left side, initial encounter for closed fracture; I13.0 Hypertensive heart and chronic kidney disease with heart failure and stage 1 through stage 4 chronic kidney disease, or unspecified chronic kidney disease; C90.00 Multiple myeloma not having achieved remission; W19.XXXA Unspecified fall, initial encounter; E11.22 Type 2 diabetes mellitus with diabetic chronic kidney disease; E11.65 Type 2 diabetes mellitus with hyperglycemia; N18.9 Chronic kidney disease, unspecified; I50.9 Heart failure, unspecified; Z95.2 Presence of prosthetic heart valve; Z79.01 Long term (current) use of anticoagulants; G25.81 Restless legs syndrome; J44.9 Chronic obstructive pulmonary disease, unspecified; J45.909 Unspecified asthma, uncomplicated; F03.90 Unspecified dementia, unspecified severity, without behavioral disturbance, psychotic disturbance, mood disturbance, and anxiety; E78.5 Hyperlipidemia, unspecified; E03.9 Hypothyroidism, unspecified; K21.9 Gastro-esophageal reflux disease without esophagitis

== ENCOUNTER 2016-10-06 14:48 | Inpatient (IN) | payer OTHER ==
[~2016-10-06] VITALS: Ht 154.9 cm; Wt 80.0 kg
--- NOTE | 2016-10-06 14:52 | NUR ---
1430-RECEIVED VIA BED TO ROOM 2140 WITH HOSPICE. FAMILY AT BEDSIDE. LEFT SHOULDER SEEN WITH TWO INCISIONS ( 3 CLIPS AND 2 CLIPS). LEFT ARM IS SEEN WITH PITTING EDEMA, UP ON PILLOW. RESERVE LEFT ARM. ON 2L PER NC. HOB UP AT 30 DEGREES. RIGHT ARM WITH IV OF NS INFUSING AT 10 CC/HR ALONG WITH NEEDLE MOLDER DEMEROL. RIGHT INNER LIP SEEN WITH SLIGHT BLOOD TO IT (HAD SEIZURE THIS EARLY AM). MCCULLOUGH CATH PATENT WITH CLEAR YELLOW URINE. ON FIRST STEP OVERLAY MATTRESS. WILL ADMIT.
[2016-10-06 14:57] VITALS: BP 149/73; Ht 154.9 cm; Wt 80.0 kg
--- NOTE | 2016-10-06 15:47 | NUR ---
CALL PLACED TO [facility] R/T 100.1 AX TEMP ON PATIENT AND NO ORDERS FOR TYLENOL SUPP. AWAITING CALL BACK.
--- NOTE | 2016-10-06 15:52 | NUR ---
NEW ORDERS RECEIVED. WILL MONITOR TEMP AND GIVEN SUPP ORDERED.
[2016-10-06 16:07] VITALS: BP 149/73
--- NOTE | 2016-10-06 16:42 | NUR ---
RESTING QUIETLY WITH EYES CLOSED. RESP ARE EVEN AND NON LABORED. FAMIY AT BEDSIDE. WILL CPOC.
--- NOTE | 2016-10-06 17:08 | NUR ---
FAMILY MEMBERS REQUESTING FAN PATIENT IS "SWEATING OFF AND ON". AXILLARY TEMP CHECKED WITH 98.6 READING. FAN GIVEN. FAMILY DENIES ANY OTHER NEEDS AT PRESENT TIME.
--- NOTE | 2016-10-06 19:15 | NUR ---
RESTING QUIETLY WITH EYES CLOSED. ON 02 AT 2L/NC. RR 18 EVEN U/L. NO S/S OF PAIN OR DISCOMFORT. SQL SSRS SSIS DEVELOPER WITH DEMEROL FOR PAIN PAIN CONTROL. ON HOSPICE FOR COMFORT CARE. FAMILY PRESENT IN ROOM.
[2016-10-06 20:12] VITALS: BP 140/53
--- NOTE | 2016-10-06 22:55 | NUR ---
ADMIN ATIVAN 1MG IV PER FAMILY REQUEST. STATED PATIENT IS MOANING AND PULLING AT LINES.
--- NOTE | 2016-10-07 05:00 | NUR ---
REQUESTED QUIETLY DURING THE NIGHT WITH NO SIGNS/SYMPTOMS OF PAIN OR DISTRESS. FAMILY PRESENT IN ROOM. NO QUESTIONS OR CONCERNS VOICED.
[2016-10-07 08:31] VITALS: BP 136/71
--- NOTE | 2016-10-07 12:35 | NUR ---
IN BED ASLEEP - BREATHING UNLABORED AT THIS TIME - FAMILY AT BEDSIDE
--- NOTE | 2016-10-07 15:32 | NUR ---
RECORDS GIVEN TO HOSPICE NURSE JESE PLATA RN
--- NOTE | 2016-10-07 17:55 | NUR ---
BRIEFLY WOKE UP AND EXPRESSED HER PAIN AND REQUESTED PAIN MEDICATION
--- NOTE | 2016-10-07 19:34 | NUR ---
RECEIVED REPORT, PT IS ON COMFORT CARE, FAMILY AT BEDSIDE, DENIES ANY NEEDS, [id number], MOLDER-2MG DEMORAL CONT.PT HAS A MCCULLOUGH, WILL KEEP COMFORT CARE
[2016-10-07 20:00] VITALS: BP 111/39
--- NOTE | 2016-10-08 01:44 | NUR ---
PT RESTING, BREATHING SHALLOW, 02-2L, FAMILY AT BEDSIDE, WILL CONTINUE COMFORT CARE
--- NOTE | 2016-10-08 03:38 | NUR ---
ELECTRICIAN BUS AT BEDSIDE TO OBTAIN VITALS, WILL CONTINUE WITH PLAN OF CARE.
--- NOTE | 2016-10-08 07:50 | NUR ---
AM ROUNDING- RECEIVED REPORT FROM MEDICAL STENOGRAPHER NURSE MARILYNN. PT IS CURRENTLY LAYING IN BED ON BACK WITH EYES CLOSED RESTING. ON HOSPICE CARE. FAMILY MEMBERS ARE AT BEDSIDE. ON 02 AT 2L VIA NC. NO MONITOR. IV SEEN TO RIGHT FOREARM WITH NS RUNNING AT 10CC. PHOTOGRAPHER STILL PUMP WITH DEMEROL RUNNING AT 0.2MG CONTINUOUS. FAMILY MEMBERS STATED PT IS HAVING SOME PAIN IN LEFT ARM. PT GIVEN DILAUDID PRN ORDERED FOR PAIN THIS AM. NO NEED AT CURRENT TIME. WILL CONTINUE TO MONITOR AND CONTIUE WITH COMFORT MEASURES.
[2016-10-08 08:00] VITALS: BP 115/33
--- NOTE | 2016-10-08 11:15 | NUR ---
CHECKED ON PT. PTS LAYING IN BED ON BACK WITH EYES CLOSED RESTING. EQUAL CHEST RISE AND FALL SEEN WITH RESP AT 16 BPM. FAMILY IS AT BEDSIDE. INSTRUCTED FAMILY TO LET ME KNOW IF THEY NEED ANYTHING, FAMILY AGREED. WILL CONITNUE TO MONITOR.
--- NOTE | 2016-10-08 15:56 | NUR ---
WHILE DOING PTS SHIFT ASSESSMENT, PTS DAUGHTER STATED PT DID HAVE SKIN BREAKDOWN ON BUTTOCK AREA BUT PTS FAMILY REQUESTED I DO NOT TURN PT AT THIS TIME DUE TO IT BEING TOO PAINFUL FOR PT.
--- NOTE | 2016-10-08 16:50 | NUR ---
PTS FAMILY STATES THAT PT IS C/O OF PAIN. GAVE PT PRN DILAUDID ORDERED. HOSPICE NURSE IS CURRENTLY IN ROOM. HOSPICE NURSE STATES TO TALK WITH DR. MCDANIEL ABOUT GETTING PT SOMETHING STRONGER FOR PAIN VIA LUBRICATING ENGINEER PUMP. WILL AWAIT NEW ORDERES AND CONTINUE TO MONITOR.
--- NOTE | 2016-10-08 18:08 | NUR ---
WITH THE ASSISTANCE OF LATOYA HASKINS AND KAIA RN; D/C PTS DIRECTOR OF CONSERVATION WITH DEMEROL ORDERED AT 0.2ML CONTINUOUS AN HOUR. REPLACED DIRECTOR OF CONSERVATION WITH DILAUDID AT 1MG (2.5ML) CONTINUOUS AN HOUR ORDERED VIA WRITTEN PHYSICIAN ORDERS PER LATOYA SCHMITT (HOSPICE NURSE) PER DR. MCDANIEL.
--- NOTE | 2016-10-08 19:09 | NUR ---
PT IS CURRENTLY LAYING IN BED ON BACK WITH EYES CLOSED RESTING. FAMILY MEMBERS ARE AT BEDSIDE. NO NEED AT CURRENT TIME. WILL CONTINUE TO MONITOR.
--- NOTE | 2016-10-08 19:25 | NUR ---
RESTING QUIETLY WITH EYES CLOSED. NO SIGNS OR SYMPTOMS OF PAIN OR DISCOMFORT. FAMILY PRESENT IN ROOM. NO QUESTIONS OR CONCERNS VOICED.
--- NOTE | 2016-10-08 21:33 | NUR ---
ADMIN LASIX 20MG IV PER ORDER. FAMILY REQUESTED TO NOT DO VITAL SIGNS, BATH OR REPOSITION HER TONIGHT. WILL INFORM ROUTER TENDER.
--- NOTE | 2016-10-09 00:30 | NUR ---
RR BECOMING MORE LABORED. MOUTH BREATHING. CLEANED HER MOUTH WITH MOISTENED SWABS. FAMILY PRESENT IN ROOM.
--- NOTE | 2016-10-09 02:51 | NUR ---
AGONAL BREATHING NOTED. FAMILY TEARFUL. ASSURED THEM SHE IS FEELING NO PAIN OR DISTRESS. WILL CONT TO MONITOR.
--- NOTE | 2016-10-09 06:32 | NUR ---
NO CHANGES NOTED. RR 12, SHALLOW, RASPY. HR 102, IRREGULAR. WILL CONT TO MONITOR.
--- NOTE | 2016-10-09 07:47 | NUR ---
AM ROUNDING- RECEIVED REPORT FROM ENAMEL MACHINE OPERATOR NOE. PT IS CURRENTLY LAYING IN BED ON BACK WITH EYES CLOSED RESTING. FAMILY MEMBERS ARE AT BEDSIDE. RESP ARE DEEP WITH WHAT APPEARS TO BE SLIGHTLY LABORED BREATHING. ON HOSPICE CARE. ON 02 AT 2L VIA NC. IV SEEN TO RIGHT FOREARM WITH NS RUNNING AT 10CC. PRINCIPAL MILITARY ANALYST PUMP WITH DILAUDID SEEN (1MG/HR CONTINUOUS ORDERED). MCCULLOUGH CATHETER SEEN WITH SCAN URINE. NO NEED AT CURRENT TIME. WILL CONTINUE TO MONITOR AND CONTINUE WITH COMFORT CARE.
[2016-10-09 08:04] VITALS: BP 97/39
--- NOTE | 2016-10-09 10:31 | NUR ---
1015- THERAPY GOT PT UP TO CHAIR. SITTING AT THE NURSES STATION (ACROSS FROM PTS ROOM) I HEAR PT YELLING. WENT TO CHECK ON PT AND PT STATES SHE DOES NOT WANT TO SIT IN CHAIR ANYMORE AND SHE WANTS TO GO BACK TO BED. INSTRUCTED PT THAT IT IS IMPORTANT FOR HER TO GET OUT OF THE BED FOR A LITTLE WHILE TO GET PRESSURE OFF OF HER BACKSIDE. HECTOR ARELLANO, OIL BURNER IN ROOM WITH ME ENCOURAGING PT TO STAY IN CHAIR. PLACED EGG CRATE SEAT MATTRESS UNDER PTS BOTTOM FOR MORE COMFORT. CALL LIGHT PLACED IN PTS REACH AND BED BOX ALARM ATTATCHED TO PT. 1030- LATOYA MCQUEEN CHECK ON PT, PT IS SITTING UP IN CHAIR WANTING TO GET BACK IN BED. LATOYA MCQUEEN INSTRUCTED PT TO STAY IN CHAIR FOR A LITTLE WHILE. WILL CONTINUE TO MONITOR. 1032- I CHECKED ON PT, PT IS SITTING UP IN CHAIR WITH EYES CLOSED. WILL CONTINUE TO MONITOR.
--- NOTE | 2016-10-09 13:32 | NUR ---
CHECKED ON PT. PT IS LAYING IN BED ON BACK WITH EYES CLOSED RESTING. AND DAUGHTER ARE AT BEDSIDE. PTS RESPRIATIONS ARE SHALLOW WITH 12 BPM. SKIN IS CLAMMY TO TOUCH. NO EXCESSIVE SECRETIONS SEEN FROM MOUTH AREA. SOFTWARE DEVELOPER INTERN PUMP WITH DILAUDID IS RUNNING ORDERED. PT IS IN NO SIGN OF DISTRESS AT THIS TIME. CALL LIGHT IS IN REACH. INSTRUCTED FAMILY MEMBERS TO LET ME KNOW IF THEY NEED AT ANYTHING, FAMILY AGREES. WILL CONTINUE TO MONTITOR.
--- NOTE | 2016-10-09 18:33 | NUR ---
PT IS CURRENTLY LAYING IN BED ON BACK WITH EYES CLOSED RESTING. FAMILY MEMBERS ARE AT BEDSIDE. KAIAWHINA PUMP WITH DILAUDID IS RUNNING ORDERED. PT IS IN NO SIGN OF DISTRESS AT THIS TIME. NO NEED AT CURRENT TIME. WILL CONTINUE TO MONITOR.
--- NOTE | 2016-10-09 19:30 | NUR ---
RECEIVED REPORT, PT IS ON HOSPICE, UNRESPONSIVE, HOSPICE NURSE AT BEDSIDE DOING ASSESSMENT, FAMILY AT BEDSIDE, 02-2L, IV-RFA-NS @ 10, FINAL TESTER 1MG/HR CONT. MCCULLOUGH, 1ST MATTRESS, L. ARM EDEMA, WILL CONTINUE COMFORT CARE
[2016-10-09 20:56] VITALS: BP 83/32
--- NOTE | 2016-10-10 02:26 | NUR ---
PT RESTING WELL WITHOUT C/O OR DISTRESS NOTED. NO NEEDS VOICED. CALL LIGHTS WITHIN REACH. WILL CONT TO MONITOR.
--- NOTE | 2016-10-10 03:05 | NUR ---
ASSESSMENT COMPLETE, SEE FLOWSHEET, PT IS UNRESPONSIVE, ON HOSPICE, FAMILY AT BEDSIDE, WILL CONTINUE COMFORT CARE
[2016-10-10 08:00] VITALS: BP 99/31
--- NOTE | 2016-10-10 08:12 | NUR ---
AM ROUNDS - PT APPEARS TO BE SLEEPING IN BED. BREATHING IS IRREGULAR AND APNEIC. MCCULLOUGH DRAINING CLEAR YELLOW. IV TO RIGHT FA, NS @ 10CC/HR WITH PORTFOLIO SPECIALIST DILAUDID 1MG/HR CONTIN. IST STEP OVERLAY MATTRESS. CAROLGHTER AT BEDSIDE. SIDE RAILS UP X3. WILL CONTINUE TO MONITOR.
--- NOTE | 2016-10-10 13:21 | NUR ---
PT IS LATHARGIC. FAMILY AT BEDSIDE. WILL CONTINUE TO MONITOR.
--- NOTE | 2016-10-10 18:02 | NUR ---
SUCTIONED PT. THICK SECRETIONS. PT SOUNDED BETTER AND NO GARGLED WITH RESPIRATIONS AFTER SUCTION. WILL CONTINUE TO MONITOR
--- NOTE | 2016-10-10 19:20 | NUR ---
LETHARGIC, NON-RESPONSIVE. FAMILY PRESENT IN ROOM.
--- NOTE | 2016-10-10 22:15 | NUR ---
SUCTION SECRETIONS AND ADMIN ATROPINE 2 DROPS UNDER TONGUE.
--- NOTE | 2016-10-11 04:54 | NUR ---
NO CHANGES NOTED. LETHARGIC, UNRESPONSIVE. FAMILY PRESENT IN ROOM. NO NEEDS OR CONCERNS VOICED.
[2016-10-11 08:46] VITALS: BP 126/50
--- NOTE | 2016-10-11 09:40 | NUR ---
SEDATED. UNRESPONSIVE. FAMILY AT BEDSIDE. LT ARM ELEVATED ON PILLOW DUE TO SWELLING. TEMP 102.3. ICE PACKS PLACED UNDER ARM BILATERALLY FOR 20 MINS. TYLENOL SUPP ADMINISTERED. RECHECK TEMP IN 30 MINS. ONE SHEET ON. CONTINUE PLAN OF CARE. BED LOCKED AND LOW. CALL LIGHT IN REACH. THREE SIDERAILS UP.
--- NOTE | 2016-10-11 10:19 | NUR ---
SEDATED. UNRESPONSIVE. FAMILY REMAIN AT BEDSIDE. TEMP 100.6. ICE PACKS REMOVED FROM UNDER ARMS. [facility]. CONTINUE PLAN OF CARE AND SAFETY PRECAUTIONS.
--- NOTE | 2016-10-11 19:37 | NUR ---
RESUMED CARE OF PT, LYING IN BED WITH EYES CLOSED RESPIRATIONS EVEN AND UNLABORED ON 2LPM VIA NC. MCCULLOUGH TO GRAVITY. FAMILY AT BEDSIDE. LEFT FOREARM INFUSING DILAUDID BED SPRING MAKER @ 1MG/HR CONTINUOUS AND NS @ KVO. CALL LIGHT IN REACH. WILL CONTINUE TO MONITOR. SEE NURSE ASSESSMENT.
[2016-10-11 20:00] VITALS: BP 129/35
--- NOTE | 2016-10-11 23:31 | NUR ---
DEEP SUCTION AND ORAL CARE PROVIDED. THICK WHITE-YELLOW SECRETIONS REMOVED.
--- NOTE | 2016-10-12 00:54 | NUR ---
LYING IN BED, FAMILY AT BEDSIDE. CALL LIGHT IN REACH. WILL CONTINUE TO MONITOR.
--- NOTE | 2016-10-12 06:14 | NUR ---
NO CHANGES FROM PREVIOUS ASSESSMENT. CALL LIGHT IN REACH.
--- NOTE | 2016-10-12 07:16 | NUR ---
AM ROUNDS- PT IN BED, IV INFUSING NS AT KVO, AND DILUADID KNIFE SETTER PUMP SET FOR 1MG/HR CONT. O2 AT 2L VIA NC. AND DAUGTHER AT BEDSIDE, NAD NOTED, CALL LIGHT IN REACH, WILL CONTINUE TO MONITOR.
[2016-10-12 08:00] VITALS: BP 102/37
--- NOTE | 2016-10-12 13:22 | NUR ---
NEW SYRINGE OF DILUDID PLACED ON MARINE ENGINEERING CONSULTANT PUMP,2ML WASTED WITH LEVI KLEIN. ALSO NEW BAG OF NS IVF HUNG TOO. TYLENOL SUPP INSERTED AT THIS TIME FOR A TEMP. PT REPOSITIONED AT THIS TIME. AND OTHER FAMILY MEMBER AT BEDSIDE, NAD NOTED, CALL LIGHT IN REACH, WILL CONTINUE TO MONITOR.
--- NOTE | 2016-10-12 20:19 | NUR ---
LETHARGIC/UNRESPONSIVE. POSITION ON RIGHT SIDE. IV IN R AC INTACT/PATENT. HAS TABLE TENDER SLUDGE WITH DILAUDID AT 1MG/HR CONT FOR PAIN CONTROL. MCCULLOUGH INTACT/PATENT. 02 ON AT 2L/NC. RR 12 AND SHALLOW. FAMILY PRESENT IN ROOM.
[2016-10-12 21:46] VITALS: BP 114/30
--- NOTE | 2016-10-13 06:23 | NUR ---
NO CHANGES NOTED. SHALLOW RESP. RATE 12 EVEN U/L.
--- NOTE | 2016-10-13 07:16 | NUR ---
AM ROUNDS- PT IN BED, SHALLOW BREATHING. KANNANUGTHER AND AT BEDSIDE. KANNANUGTHER STATES THAT PT IS RUNNING A TEMP THIS AM AGAIN. WILL GIVE PT A TYLENOL SUPP. FAMILY DENY ANY NEEDS, CALL LIGHT IN REACH, NAD NOTED, WILL CONTINUE TO MONITOR.
--- NOTE | 2016-10-13 07:51 | NUR ---
650MG OF TYLENOL SUPP ADMINISTERED AT THIS TIME. NAD NOTED, CALL LIGHT IN REACH, DAUGTHER AT BEDSIDE, WILL CONTINUE TO MONITOR.
[2016-10-13 08:15] VITALS: BP 143/55
--- NOTE | 2016-10-13 10:18 | NUR ---
TEMP RECHECHED AT THIS TIME, TEMP 101.2 PLACED ICE PACKS UNDER BOTH ARMS AND PLACED ONE BEHIND HER NECK. WILL RECHECK TEMP IN ABOUT 1 HR. NAD NOTED, FAMILY AT BEDSIDE, CALL LIGHT IN REACH, WILL CONTINUE TO MONITOR.
--- NOTE | 2016-10-13 11:19 | NUR ---
BLASTHER AT BEDSIDE ASKED FOR PT'S O2 TO BE CHECKED. PT STAYING AT 88% AT THIS TIME. FAMILY AT BEDSIDE DENY ANY NEEDS, CALL LIGHT IN REACH, NAD NOTED, WILL CONTINUE TO MONITOR.
--- NOTE | 2016-10-13 13:03 | NUR ---
SYRINGE CHANGED AT THIS TIME. SYRINGE WAS EMPTIED, SO NO DILUDID WAS WASTED. PT UNRESPONSIVE, RESP SHALLOW. NAD NOTED. AT BEDSIDE, WILL CONTINUE TO MONITOR.
--- NOTE | 2016-10-13 14:09 | NUR ---
TEMP OF 100.6, 650MG OF TYLENOL SUPP ADMINISTERED AT THIS TIME. PT REPOSITIONED IN BED, NAD NOTED, AT BEDSIDE, WILL CONTINUE TO MONITOR.
--- NOTE | 2016-10-13 15:19 | NUR ---
PT MAKING GRUNTING NOISES, O2 IS 69, ADMINISTERE 1MG OF ATIVAN AT THIS TIME. CHANGED GOWN AND TOP SHEET. FAMILY AT BEDSIDE, THEY DENY ANY NEEDS AT THIS TIME. CALL LIGHT IN REACH, NAD NOTED, WILL CONTINUE TO MONITOR.
--- NOTE | 2016-10-13 19:25 | NUR ---
LETHARGIC, UNRESPONSIVE. SHALLOW RR 8. FEELS HOT/CLAMMY TO TOUCH. FAMILY IN ROOM. WILL CONT TO MONITOR CLOSELY.
[2016-10-13 22:09] VITALS: BP 113/55
--- NOTE | 2016-10-14 01:00 | NUR ---
CHANGED SENIOR TECHNICAL RECRUITER DILAUDID SYRINGE. ADMIN 1 DROP ATROPINE SUBLINGUAL.
--- NOTE | 2016-10-14 04:01 | NUR ---
NO CHANGES OBSERVED. RR 9-12/MIN. SHALLOW AND LABORED. WILL CONT TO MONITOR CLOSELY.
--- NOTE | 2016-10-14 07:55 | NUR ---
AM ROUNDING- RECEIVED REPORT FROM CORN COOKER NURSE NOE. PT IS CURRENTLY LAYING IN BED ON RIGHT SIDE WITH EYES CLOSED RESTING. RESPIRATIONS ARE SHALLOW AND RAPID (RR 26 BPM). DNR. ON 02 AT 3L VIA NC. NO MONITOR. IV SEEN TO RIGHT AC WITH NS RUNNING AT KVO (10CC) AND EXECUTIVE CYBER LEADER PUMP WITH DILAUDID RUNNING AT 1MG/HR CONTINUOUS ORDERED. MCCULLOUGH CATHETER SEEN. NO NEED AT CURRENT TIME. WILL CONTINUE TO MONITOR AND CONTINUE WITH COMFORT CARE.
[2016-10-14 08:19] VITALS: BP 87/27
--- NOTE | 2016-10-14 10:57 | NUR ---
1039- KALYN MTZ CAME TO INFORM ME THAT PT HAD PASSED. WALKED TO PTS ROOM AND PTS CAME OUT SAYING HE THINKS SHE HAS PASSED. WENT INTO PTS ROOM. PT HAD NO VISIBLE RESPIRATIONS AND NO PALPABLE PULSE. PTS SKIN IS CLAMMY. HECTOR ARELLANO, SILK WASHING MACHINE OPERATOR CAME INTO ROOM AND LISTENED TO FOR LUNG SOUNDS WITH NONE HEARD ON AUSCULTATION. IS AT BEDSIDE. WILL CALL [facility] AND INFORM THEM OF THIS.
--- NOTE | 2016-10-14 10:57 | NUR ---
CALLED [facility] TO INFORM THEM OF PTS PASSING. [facility] STATES THEY WILL GET SOMEONE UP HERE.
--- NOTE | 2016-10-14 11:39 | NUR ---
KESHIA, HOSPICE NURSE IS HERE ON UNIT. KESHIA IS SPEAKING WITH DR. MCDANIEL ON PHONE NOW INFORMING HIM OF OF PTS PASSING.
--- NOTE | 2016-10-14 11:39 | NUR ---
6708- PAGED DR. MCDANIEL TO INFORM HIM OF PTS PASSING. AWAITING CALLBACK.
--- NOTE | 2016-10-14 12:37 | NUR ---
1139- DR. MCDANIEL ON THE PHONE WITH KESHIA HOSPICE NURSE. DR. MCDANIEL STATES HE WILL HAVE ER NURSE COME AND PRONOUNCE TIME OF . WILL AWAIT ER NURSE THAT DR. MCDANIEL CONTACTS FOR TIME OF . 1200- MARINE ERECTOR COMES TO [place], BRAZING MACHINE OPERATOR AND STATES THAT ER DOCTOR (DR. MAYORGA) IS TOO BUSY AND CANNOT COME PRONOUNCE TIME OF AT THIS TIME. [facility] STATES TO [facility], BRAZING MACHINE OPERATOR " IS THERE ANOTHER DOCTOR HERE WHO CAN PRONOUNCE TIME OF SO WE CAN GET THIS PROCEDURE GOING". 1230- I INFORMED HOSPICE NURSE KESHIA THAT DR. MCDANIEL WILL HAVE TO COME ANNOUNCE TIME OF DUE TO DR. MCDANIEL BEING PTS ADMITTING DOCTOR IF DR. MAYORAG (WHO DR. MCDANIEL CALLED TO COME ANNOUNCE TIME OF BUT DR. MAYORGA CANNOT DUE TO BEING BUSY IN ER) CANNOT DO SO. KESHIA STATES SHE CONTACTED DR. MCDANIEL AND HE IS ON IS WAY. 1235- DR. MCDANIEL ON UNIT NOW. 1242- DR. MCDANIEL SIGNED RECORD OF SHEET BUT DID NOT SIGN TIME OF . KESHIA HOSPICE NURSE IS CALLING DR. MCDANIEL NOW TO STATE THAT HE DID NOT SIGN. KESHIA HOSPICE NURSE IS ON PHONE WITH DR. MCDANIEL NOW. DR. MCDANIEL INSTRUCTED KESHIA HOSPICE NURSE (WITH [facility]) TO SIGN TIME OF TO 1230.
--- NOTE | 2016-10-14 13:12 | NUR ---
KALYN MTZ ASSISTED ME WITH POST-MORTEM CARE. REMOVED PTS IV TO RIGHT AC WITH CATH TIP INTACT. REMOVED PTS MCCULLOUGH CATHETER WITH 8CC OUT OF BALLOON SYRINGE WITH CATH TIP INTACT. PLACED CLEAN GOWN ON PT. AWAITING HOME TO GET TO UNIT.
--- NOTE | 2016-10-14 13:45 | NUR ---
HOME IS HERE TO GET PT.
== END 2016-10-14 14:06 | DRG 951 ==
LOC: D.M2 14:48
PROVIDERS: ADMIT Legal Medicine
DX: Z51.5 Encounter for palliative care (principal)